=== PATIENT | female | born 1945 | race African-American/Black ===

== ENCOUNTER 2016-12-31 11:32 | Observation (INO) | payer BC ==
[~2016-12-31] VITALS: Ht 167.6 cm; Wt 75.0 kg
[~2016-12-31 11:32] MED LIST: ATEN-102 PO; DIPH50TA PO; EPIP0.3I IM; FAMO1TAB36; NIFE60TA5 PO; PRED20 PO; ZYRT1SYP PO
[2016-12-31 11:35] VITALS: BP 141/77; TEMP 97.9; O2SAT 100
--- NOTE | 2016-12-31 13:14 | PD ---
HPI Chief Complaint: Chest Pain Time Seen by Provider: 13:14 Travel History International Travel<30 days: No Contact w/Intl Traveler<30days: No Traveled to known affect area: No History of Present Illness HPI 71-year-old female with history of lupus and hypertension presents to emergency department for evaluation. Patient states yesterday she had an episode of blurred vision and dizziness. She states this resolved but since then she has been having an intermittent substernal chest pain. It does not radiate anywhere. It is a 3 out of 10. She does not recall any injury. Denies any shortness of breath. No recent illnesses, fever, or chills. She contacted her primary care provider's office, Dr. Jason, who advised she come to the emergency department. Patient denies any nausea or vomiting. No other focal deficits or weakness. No other symptoms to report. PFSH Past Medical History Cardiovascular Problems: Yes Diminished Hearing: No Hypertension: Yes Menopausal: Yes Past Surgical History Cholecystectomy: Yes Social History Alcohol Use: No Tobacco Use: No Substance Use: No Allergies-Medications (Allergen,Severity, Reaction): Coded Allergies: Lisinopril (Verified Allergy, Severe, Anaphylaxis, 12/31/16) Codeine (Verified Allergy, Unknown, RASH, 12/31/16) Reported Meds & Prescriptions Reported Meds & Active Scripts Active Deltasone 20 Mg Tab (Prednisone) 20 Mg Tab 60 Mg PO DAILY 4 Days Epipen (Epinephrine HCl) 0.3 Mg Inj 0.3 Mg IM DIRECTED GIVE IM IN THIGH, MAY REPEAT IF NEEDED Reported Benadryl (Diphenhydramine HCl) 50 Mg Cap 50 Mg PO HS Pepcid (Famotidine) 20 Mg Tab Zyrtec (Cetirizine HCl) 5 Mg/5 Ml Syp 10 Ml PO DAILY Nifedical Xl (Nifedipine) 60 Mg Tab 60 Mg PO DAILY Atenolol 50 Mg Tab 50 Mg PO DAILY Review of Systems Except as stated in HPI: all other systems reviewed are Neg Physical Exam Narrative GENERAL: Well-nourished female patient, in no acute distress SKIN: Warm and dry. HEAD: Atraumatic. Normocephalic. EYES: Pupils equal and round. No scleral icterus. No injection or drainage. EOMI. ENT: No nasal bleeding or discharge. Mucous membranes pink and moist. NECK: Trachea midline. No JVD. CARDIOVASCULAR: Regular rate and rhythm. No murmur appreciated. RESPIRATORY: No accessory muscle use. Clear to auscultation. Breath sounds equal bilaterally. GASTROINTESTINAL: Abdomen soft, non-tender, nondistended. Hepatic and splenic margins not palpable. MUSCULOSKELETAL: No obvious deformities. No clubbing. No cyanosis. No edema. Equal strength. No pronator drift. NEUROLOGICAL: Awake and alert. No obvious cranial nerve deficits. Motor grossly within normal limits. Normal speech. PSYCHIATRIC: Appropriate mood and affect; insight and judgment normal. Data Data Last Documented VS Vital Signs Date Time Temp Pulse Resp B/P Pulse Ox O2 Delivery O2 Flow Rate FiO2 12/31/16 11:35 97.9 70 15 141/77 100 Orders Electrocardiogram (12/31/16 ) Complete Blood Count With Diff (12/31/16 13:13) Comprehensive Metabolic Panel (12/31/16 13:13) Magnesium (Mg) (12/31/16 13:13) Ckmb (Isoenzyme) Profile (12/31/16 13:13) Troponin I (12/31/16 13:13) Act Partial Throm Time (Ptt) (12/31/16 13:13) Prothrombin Time / Inr (Pt) (12/31/16 13:13) Urinalysis - C+S If Indicated (12/31/16 13:13) Chest, Single Ap (12/31/16 13:13) Ct Brain W/O Iv Contrast(Rout) (12/31/16 13:13) Ecg Monitoring (12/31/16 13:13) Iv Access Insert/Monitor (12/31/16 13:13) Oximetry (12/31/16 13:13) Sodium Chloride 0.9% Flush (Ns Flush) (12/31/16 13:15) CKMB (12/31/16 14:10) CKMB% (12/31/16 14:10) Labs Laboratory Tests Test 12/31/16 12/31/16 14:10 15:10 Prothrombin Time 12.6 SEC Prothromb Time International 1.1 RATIO Ratio Activated Partial 23.1 SEC Thromboplast Time Urine Color YELLOW Urine Turbidity CLEAR Urine pH 6.0 Urine Specific [place] 1.021 Urine Protein TRACE mg/dL Urine Glucose (UA) NEG mg/dL Urine Ketones NEG mg/dL Urine Occult Blood NEG Urine Nitrite NEG Urine Bilirubin NEG Urine Urobilinogen LESS THAN 2.0 MG/DL Urine Leukocyte Esterase NEG Urine WBC 1 /hpf Urine Mucus FEW /lpf Microscopic Urinalysis Comment CULT NOT INDICATED Sodium Level 140 MEQ/L Potassium Level 5.0 MEQ/L Chloride Level 104 MEQ/L Carbon Dioxide Level 27.6 MEQ/L Anion Gap 8 MEQ/L Blood Urea Nitrogen 16 MG/DL Creatinine 0.84 MG/DL Estimat Glomerular Filtration 81 ML/MIN Rate Random Glucose 75 MG/DL Calcium Level 8.8 MG/DL Magnesium Level 2.1 MG/DL Total Bilirubin 0.5 MG/DL Aspartate Amino Transf 40 U/L (AST/SGOT) Alanine Aminotransferase 30 U/L (ALT/SGPT) Alkaline Phosphatase 101 U/L Total Creatine Kinase 290 U/L Troponin I LESS THAN 0.02 NG/ML Total Protein 8.2 GM/DL Albumin 3.6 GM/DL White Blood Count 4.8 TH/MM3 Red Blood Count 4.36 MIL/MM3 Hemoglobin 11.8 GM/DL Hematocrit 35.9 % Mean Corpuscular Volume 82.2 FL Mean Corpuscular Hemoglobin 27.0 PG Mean Corpuscular Hemoglobin 32.8 % Concent Red Cell Distribution Width 14.1 % Platelet Count 227 TH/MM3 Mean Platelet Volume 9.6 FL Neutrophils (%) (Auto) 53.6 % Lymphocytes (%) (Auto) 33.6 % Monocytes (%) (Auto) 9.6 % Eosinophils (%) (Auto) 2.3 % Basophils (%) (Auto) 0.9 % Neutrophils # (Auto) 2.6 TH/MM3 Lymphocytes # (Auto) 1.6 TH/MM3 Monocytes # (Auto) 0.5 TH/MM3 Eosinophils # (Auto) 0.1 TH/MM3 Basophils # (Auto) 0.0 TH/MM3 CBC Comment DIFF FINAL Differential Comment MDM Medical Decision Making Medical Screen Exam Complete: Yes Emergency Medical Condition: Yes Medical Record Reviewed: Yes Differential Diagnosis Syncope versus near syncope versus vertigo versus TIA versus CVA versus ICH versus ACS versus dysrhythmia versus electrolyte abnormality Narrative Course 71-year-old female presents to the emergency department for evaluation of a substernal chest pain intermittently occurring following an episode of dizziness and blurred vision that occurred yesterday. Patient appears without distress. Her vital signs are stable. CBC and CMP are without acute concern. Troponin is less than 0.02. Chest x-ray shows basilar hypoaeration with right sided atelectasis. CT imaging of the brain is unremarkable with no evidence of acute infarct, hemorrhage, mass, or edema. I have discussed the patient my attending physician Dr. Blount who agrees the patient should be admitted observation for further evaluation and serial enzymes as well as TIA workup. Plan is discussed with the patient and she is in agreement with this plan of care. Diagnosis Primary Impression: Dizziness Additional Impressions: Blurred vision, bilateral Chest pain Qualified Code: R07.9 - Chest pain, unspecified type Admitting Information Admitting Physician Requests: Observation Condition: Stable ToribioCheyenne SHELTON Dec 31, 2016 13:14
[2016-12-31] MEDS ORDERED: SODIUM CHLORIDE 0.9% FLUSH 5 ML FLUSH IVF PRN (13:15)
--- NOTE | 2016-12-31 13:48 | RADRPT ---
EXAM DATE/TIME: 12/31/2016 13:16 [facility] COMPARISON: No previous studies available for comparison. INDICATIONS : Chest pain MEDICAL HISTORY : None. SURGICAL HISTORY : None. ENCOUNTER: Initial ACUITY: 1 day PAIN SCORE: 2/10 LOCATION: Bilateral chest FINDINGS: A single view of the chest demonstrates basilar hypoaeration. There some minimal airspace disease toya ng the right diaphragm. Mid to upper lung [place] are clear. Heart is at the upper limits of normal in size. Osseous structures are intact. CONCLUSION: Basilar hypoaeration with right-sided atelectasis. Yang Nesbitt MD on December 31, 2016 at 13:46 Board Certified Radiologist. This report was verified electronically.
--- NOTE | 2016-12-31 13:49 | RADRPT ---
EXAM DATE/TIME: 12/31/2016 13:22 [facility] COMPARISON: No previous studies available for comparison. INDICATIONS : Unsteady gait since last night. RADIATION DOSE: 56.35 CTDIvol (mGy) MEDICAL HISTORY : Cardiovascular disease. Hypertension. SURGICAL HISTORY : None. ENCOUNTER: Initial ACUITY: 1 day PAIN SCALE: 0/10 LOCATION: cranial TECHNIQUE: Multiple contiguous axial images were obtained of the head. Using automated exposure control and adj ustment of the mA and/or kV according to patient size, radiation dose was kept as low as reasonably a chievable to obtain optimal diagnostic quality images. FINDINGS: CEREBRUM: The ventricles are normal for age. No evidence of midline shift, mass lesion, hemorrhage or acute in farction. No extra-axial fluid collections are seen. POSTERIOR FOSSA: The cerebellum and brainstem are intact. The 4th ventricle is midline. The cerebellopontine angle i s unremarkable. EXTRACRANIAL: The visualized portion of the orbits is intact. SKULL: The calvaria is intact. No evidence of skull fracture. CONCLUSION: Unremarkable exam. No evidence of acute infarct, hemorrhage, mass or edema. Yang Nesbitt MD on December 31, 2016 at 13:47 Board Certified Radiologist. This report was verified electronically.
[2016-12-31 14:30] VITALS: O2SAT 97
[2016-12-31 14:56] LABS: APTT (PATIENT) 23.1 SEC (24.3-30.1); INTERNATIONAL NORMALIZED RATIO 1.1 RATIO; PROTHROMBIN TIME - PATIENT 12.6 SEC (9.8-11.6)
[2016-12-31 15:09] LABS: BLOOD, URINE NEG (NEG); COMMENT (UR) CULT NOT INDICATED; CULTURE IF INDICATED CULT NOT INDICATED; GLUCOSE,URINE NEG (NEG); KETONE, URINE NEG (NEG); MUCUS URINE FEW /lpf (OCC); NITRITE,URINE NEG (NEG); URINE COLOR YELLOW (YELLW/STRAW)
[2016-12-31 15:10] VITALS: BP 147/71; PULSE 60; RESP 18; O2SAT 97
[2016-12-31 15:26] LABS: AUTOMATED NEUTROPHIL # 2.6 TH/MM3 (1.8-7.7); BASOPHIL % 0.9 % (0.0-2.0); EOSINOPHIL # 0.1 TH/MM3 (0-0.4); EOSINOPHIL % 2.3 % (0.0-4.0); HEMATOCRIT 35.9 % (35.0-46.0); HEMO FLAGS DIFF FINAL; LYMPH % 33.6 % (9.0-44.0); LYMPHOCYTE # 1.6 TH/MM3 (1.0-4.8); MEAN CELL VOLUME 82.2 FL (80.0-100.0); MEAN CORPUSCULAR HGB CONC 32.8 % (32.0-36.0); MONO % 9.6 % (0.0-8.0); NEUT % 53.6 % (16.0-70.0); PLATELET COUNT 227 TH/MM3 (150-450); RED BLOOD COUNT 4.36 MIL/MM3 (4.00-5.30); RED CELL DISTRIBUTION WIDTH 14.1 % (11.6-17.2); WHITE BLOOD COUNT 4.8 TH/MM3 (4.0-11.0)
[2016-12-31 15:41] LABS: ALKALINE PHOSPHATASE 101 U/L (45-117); ALT (GPT) 30 U/L (10-53); ANION GAP 8 MEQ/L (5-15); AST (GOT) 40 U/L (15-37); BICARBONATE 27.6 MEQ/L (21.0-32.0); BLOOD UREA NITROGEN 16 MG/DL (7-18); CHLORIDE 104 MEQ/L (98-107); CREATINE KINASE 290 U/L (26-192); GLOMERULAR FILTRATION RATE 81 ML/MIN (>89); MAGNESIUM 2.1 MG/DL (1.5-2.5); SODIUM (NA) 140 MEQ/L (136-145); TOTAL BILIRUBIN ADULT 0.5 MG/DL (0.2-1.0)
[2016-12-31 15:57] LABS: CKMB 0.6 NG/ML (0.5-3.6)
[2016-12-31] MEDS ORDERED: ACETAMINOPHEN 325 MG TAB PO PRN (16:30)
[2016-12-31] MEDS ORDERED: ONDANSETRON HCL 4 MG/2 ML VIAL IVP PRN (16:30)
[2016-12-31] MEDS ORDERED: ZOLPIDEM TARTRATE 5 MG TAB PO PRN (16:30)
[2016-12-31] MEDS ORDERED: BISACODYL 10 MG SUPP PR PRN (16:30)
[2016-12-31] MEDS ORDERED: SODIUM CHLORIDE 0.9% FLUSH 5 ML FLUSH FLUSH PRN (16:30)
[2016-12-31] MEDS ORDERED: NALOXONE HCL 0.4 MG/ML AMP IV PRN (16:30)
[2016-12-31] MEDS ORDERED: METOCLOPRAMIDE HCL 10 MG/2 ML VIAL IV PUSH PRN (16:30)
--- NOTE | 2016-12-31 16:59 | HHI.HP ---
[facility] Maureen Jason MD Admission Diagnosis dizziness, blurred vision, atypical chest pain. Diagnoses: Chief Complaint: Dizziness Travel History International Travel<30 Days: No Contact w/Intl Traveler <30 Da: No Traveled to Known Affected Are: No History of Present Illness 71-year-old female with a past medical history of HTN and lupus who presented for dizziness. The patient states that yesterday she was talking on the phone at home and suddenly developed some dizziness and blurred vision. She states the symptoms lasted approximately one or 2 minutes. She states she had been standing up for about 5 minutes prior to the episode. She states she tried to get a hold of her , but had a hard time with coordination when trying to work her phone. She denies experiencing any weakness, numbness, tingling, or room spinning sensation. She states her blood pressure at the time was elevated when she checked it at 147/70, although it did improve back to normal 120/69 later in the evening. She states that today she's was feeling a little woozy, so she contacted her PCP who recommended she come to the ED for evaluation. She denies any problems ambulating today. She denies any vision problems now. She states that 2 weeks ago she was around college students getting towards, and contacted a cold from them. She saw her PCP, Dr. Jason last week in the cold head are resolved and no treatment was required. Otherwise she denies any recent illness. She denies any fever, chills, cough, nausea, vomiting, diarrhea, constipation, dysuria. Of note, she states that occasionally she has mild twinges of midsternal chest discomfort. She states it occurs at random, not associated with activity or movement. She states when it comes the severity is 3/10 and it lasts for just a few seconds. She does not have any associated shortness of breath. She does take 81 mg of aspirin every day. Review of Systems Except as stated in HPI: all other systems reviewed are Neg Past Family Social History Past Medical History Hypertension Lupus Past Surgical History Cholecystectomy Reported Medications Reported Aspirin 81 mg daily Plaquenil Nifedical Xl (Nifedipine) 60 Mg Tab 60 Mg PO DAILY Atenolol 50 Mg Tab 50 Mg PO DAILY Allergies: Coded Allergies: Lisinopril (Verified Allergy, Severe, Anaphylaxis, 12/31/16) Codeine (Verified Allergy, Unknown, RASH, 12/31/16) Active Ordered Medications Current Medications Medications (Trade) Dose Ordered Sig/Anirudh Route Start Time Stop Time Status Last Admin (NS Flush) 2 ml UNSCH PRN IVF 12/31/16 13:15 (Tenormin) 50 mg DAILY PO 01/01/17 09:00 UNV (Procardia Xl) 60 mg DAILY PO 01/01/17 09:00 UNV Family History Mother had hypertension Father had heart problems Social History Denies any alcohol, tobacco, or illegal drug use Physical Exam Vital Signs Vital Signs Date Time Temp Pulse Resp B/P Pulse Ox O2 Delivery O2 Flow Rate FiO2 12/31/16 11:35 97.9 70 15 141/77 100 Physical Exam GENERAL: Pleasant. Well-developed well-nourished. In no acute distress. SKIN: Warm and dry. No lesions noted. HEENT: Normocephalic. Pupils equal and round. Mucous membranes pink and moist. CARDIOVASCULAR: Regular rate and rhythm. No murmur appreciated. No chest wall TTP. RESPIRATORY: No accessory muscle use. Clear to auscultation. Breath sounds equal bilaterally. GASTROINTESTINAL: Abdomen soft, non-tender, nondistended. Bowel sounds x4. MUSCULOSKELETAL: No obvious deformities. No clubbing or cyanosis. No edema. NEUROLOGICAL: Awake and alert. No focal neurological deficits. No cranial nerve deficits. Strength 5/5. Moves upper and lower extremities spontaneously. Normal speech. PSYCHIATRIC: Appropriate mood and affect; insight and judgment normal. Laboratory Laboratory Tests Test 12/31/16 12/31/16 14:10 15:10 Prothrombin Time 12.6 Prothromb Time International 1.1 Ratio Activated Partial 23.1 Thromboplast Time Urine Color YELLOW Urine Turbidity CLEAR Urine pH 6.0 Urine Specific [place] 1.021 Urine Protein TRACE Urine Glucose (UA) NEG Urine Ketones NEG Urine Occult Blood NEG Urine Nitrite NEG Urine Bilirubin NEG Urine Urobilinogen LESS THAN 2.0 Urine Leukocyte Esterase NEG Urine WBC 1 Urine Mucus FEW Microscopic Urinalysis Comment CULT NOT INDICATED Sodium Level 140 Potassium Level 5.0 Chloride Level 104 Carbon Dioxide Level 27.6 Anion Gap 8 Blood Urea Nitrogen 16 Creatinine 0.84 Estimat Glomerular Filtration 81 Rate Random Glucose 75 Calcium Level 8.8 Magnesium Level 2.1 Total Bilirubin 0.5 Aspartate Amino Transf 40 (AST/SGOT) Alanine Aminotransferase 30 (ALT/SGPT) Alkaline Phosphatase 101 Total Creatine Kinase 290 Creatine Kinase MB 0.6 Creatine Kinase MB % 0.2 Troponin I LESS THAN 0.02 Total Protein 8.2 Albumin 3.6 White Blood Count 4.8 Red Blood Count 4.36 Hemoglobin 11.8 Hematocrit 35.9 Mean Corpuscular Volume 82.2 Mean Corpuscular Hemoglobin 27.0 Mean Corpuscular Hemoglobin 32.8 Concent Red Cell Distribution Width 14.1 Platelet Count 227 Mean Platelet Volume 9.6 Neutrophils (%) (Auto) 53.6 Lymphocytes (%) (Auto) 33.6 Monocytes (%) (Auto) 9.6 Eosinophils (%) (Auto) 2.3 Basophils (%) (Auto) 0.9 Neutrophils # (Auto) 2.6 Lymphocytes # (Auto) 1.6 Monocytes # (Auto) 0.5 Eosinophils # (Auto) 0.1 Basophils # (Auto) 0.0 CBC Comment DIFF FINAL Differential Comment Result Diagram: 12/31/16 1510 12/31/16 1410 Imaging Last Impressions Head CT 12/31/16 1313 Signed Impressions: Service Date/Time: Saturday, December 31, 2016 13:22 - CONCLUSION: Unremarkable exam. No evidence of acute infarct, hemorrhage, mass or edema. Yang Nesbitt MD Chest X-Ray 12/31/16 1313 Signed Impressions: Service Date/Time: Saturday, December 31, 2016 13:16 - CONCLUSION: Basilar hypoaeration with right-sided atelectasis. Yang Nesbitt MD Assessment and Plan Problem List: (1) Dizziness ICD Code: R42 Status: Resolved (2) Chest pain ICD Code: R07.9 Status: Resolved (3) Blurred vision, bilateral ICD Code: H53.8 Status: Resolved (4) TIA (transient ischemic attack) ICD Code: G45.9 Status: Acute Assessment and Plan 71-year-old female with a past medical history of HTN and lupus who presented for dizziness Transient blurred vision and dizziness: Possible TIA. Head CT reviewed and unremarkable. Ordered brain MRI and carotid ultrasound. PT/OT/ST. Increase home aspirin to 325 mg. Check hemoglobin A1c and lipid panel. Atypical chest pain: Sounds like costochondritis. Initial troponin within normal limits, we'll trend. Chest x-ray some right-sided atelectasis, incentive spirometry. Check echocardiogram and monitor on telemetry. Hypertension: Chronic, stable. Continue home atenolol and nifedipine. Status: Chronic, stable. Continue home Plaquenil. DVT prophylaxis: Lovenox patient seen in the presence of her agree with management following GI specialist recommendations. Code Status Full Code Discussed Condition With Patient with at bedside, ED RN, Dr. Austin Attending Statement Patient stable seen in the presence of her discussed with MARY Hoang agree with management appreciated. Problem Qualifiers (1) Chest pain: Qualified Code: R07.9 - Chest pain, unspecified type (2) TIA (transient ischemic attack): Qualified Code: G45.9 - Transient cerebral ischemia, unspecified type Viktor Rosario Dec 31, 2016 16:59 Stefano Bourne MD Dec 31, 2016 18:57
[2016-12-31] MEDS ORDERED: ENOXAPARIN SODIUM 40 MG/0.4 ML SYRINGE SQ SCH (17:00)
[2016-12-31 17:13] LABS: FREE T4 1.07 NG/DL (0.76-1.46)
[2016-12-31] MEDS ORDERED: LORazepam 2 MG/ML VIAL IV SCH (17:15)
[2016-12-31] MEDS ORDERED: methylPREDNISolone SOD SUCC 125 MG/2 ML VIAL IV PUSH ONE (17:15)
--- NOTE | 2016-12-31 17:18 | PD ---
Physical Exam Narrative GENERAL: Well-nourished, well-developed patient. SKIN: Warm and dry. HEAD: Normocephalic and atraumatic. EYES: No injection or drainage. ENT: No nasal drainage noted. NECK: Supple, trachea midline. CARDIOVASCULAR: Regular rate and rhythm RESPIRATORY: no increased effort. No accessory muscle use. NEUROLOGICAL: Awake and alert. Moves all extremities. Normal speech. Data Data Last Documented VS Vital Signs Date Time Temp Pulse Resp B/P Pulse Ox O2 Delivery O2 Flow Rate FiO2 12/31/16 15:10 60 18 147/71 97 Room Air 12/31/16 11:35 97.9 Orders Electrocardiogram (12/31/16 ) Complete Blood Count With Diff (12/31/16 13:13) Comprehensive Metabolic Panel (12/31/16 13:13) Magnesium (Mg) (12/31/16 13:13) Ckmb (Isoenzyme) Profile (12/31/16 13:13) Troponin I (12/31/16 13:13) Act Partial Throm Time (Ptt) (12/31/16 13:13) Prothrombin Time / Inr (Pt) (12/31/16 13:13) Urinalysis - C+S If Indicated (12/31/16 13:13) Chest, Single Ap (12/31/16 13:13) Ct Brain W/O Iv Contrast(Rout) (12/31/16 13:13) Ecg Monitoring (12/31/16 13:13) Iv Access Insert/Monitor (12/31/16 13:13) Oximetry (12/31/16 13:13) Sodium Chloride 0.9% Flush (Ns Flush) (12/31/16 13:15) CKMB (12/31/16 14:10) CKMB% (12/31/16 14:10) Admit Order (Ed Use Only) (12/31/16 16:19) Atenolol (Tenormin) (01/01/17 09:00) Nifedipine Sr (Procardia Xl) (01/01/17 09:00) Labs Laboratory Tests Test 12/31/16 12/31/16 14:10 15:10 Prothrombin Time 12.6 SEC Prothromb Time International 1.1 RATIO Ratio Activated Partial 23.1 SEC Thromboplast Time Urine Color YELLOW Urine Turbidity CLEAR Urine pH 6.0 Urine Specific [place] 1.021 Urine Protein TRACE mg/dL Urine Glucose (UA) NEG mg/dL Urine Ketones NEG mg/dL Urine Occult Blood NEG Urine Nitrite NEG Urine Bilirubin NEG Urine Urobilinogen LESS THAN 2.0 MG/DL Urine Leukocyte Esterase NEG Urine WBC 1 /hpf Urine Mucus FEW /lpf Microscopic Urinalysis Comment CULT NOT INDICATED Sodium Level 140 MEQ/L Potassium Level 5.0 MEQ/L Chloride Level 104 MEQ/L Carbon Dioxide Level 27.6 MEQ/L Anion Gap 8 MEQ/L Blood Urea Nitrogen 16 MG/DL Creatinine 0.84 MG/DL Estimat Glomerular Filtration 81 ML/MIN Rate Random Glucose 75 MG/DL Calcium Level 8.8 MG/DL Magnesium Level 2.1 MG/DL Total Bilirubin 0.5 MG/DL Aspartate Amino Transf 40 U/L (AST/SGOT) Alanine Aminotransferase 30 U/L (ALT/SGPT) Alkaline Phosphatase 101 U/L Total Creatine Kinase 290 U/L Creatine Kinase MB 0.6 NG/ML Creatine Kinase MB % 0.2 % Troponin I LESS THAN 0.02 NG/ML Total Protein 8.2 GM/DL Albumin 3.6 GM/DL White Blood Count 4.8 TH/MM3 Red Blood Count 4.36 MIL/MM3 Hemoglobin 11.8 GM/DL Hematocrit 35.9 % Mean Corpuscular Volume 82.2 FL Mean Corpuscular Hemoglobin 27.0 PG Mean Corpuscular Hemoglobin 32.8 % Concent Red Cell Distribution Width 14.1 % Platelet Count 227 TH/MM3 Mean Platelet Volume 9.6 FL Neutrophils (%) (Auto) 53.6 % Lymphocytes (%) (Auto) 33.6 % Monocytes (%) (Auto) 9.6 % Eosinophils (%) (Auto) 2.3 % Basophils (%) (Auto) 0.9 % Neutrophils # (Auto) 2.6 TH/MM3 Lymphocytes # (Auto) 1.6 TH/MM3 Monocytes # (Auto) 0.5 TH/MM3 Eosinophils # (Auto) 0.1 TH/MM3 Basophils # (Auto) 0.0 TH/MM3 CBC Comment DIFF FINAL Differential Comment [facility] Supervised Visit with RONALDO: Yes Interpretation(s) CBC & BMP Diagram 12/31/16 14:10 12/31/16 15:10 Last [address] 12/31/16 1313 Signed Impressions: Service Date/Time: Saturday, December 31, 2016 13:22 - CONCLUSION: Unremarkable exam. No evidence of acute infarct, hemorrhage, mass or edema. Yang Nesbitt MD Chest X-Ray 12/31/16 1313 Signed Impressions: Service Date/Time: Saturday, December 31, 2016 13:16 - CONCLUSION: Basilar hypoaeration with right-sided atelectasis. Yang Nesbitt MD Narrative Course I, Dr. cooper, have reviewed the advance practice practitioner's documentation and am in agreement, met with the patient face to face, made the diagnosis, and the medical decision making was done by me. *My assessment and Findings: 71-year-old female presents with chest pain and dizziness. ED workup no acute. Will be placed in observation for further testing Diagnosis Primary Impression: Dizziness Additional Impressions: Blurred vision, bilateral Chest pain Qualified Code: R07.9 - Chest pain, unspecified type Admitting Information Admitting Physician Requests: Observation Condition: Stable Macey Cooper MD Dec 31, 2016 17:17
[2016-12-31] MEDS: ASPIRIN 325 MG TAB PO SCH (17:32)
[2016-12-31] MEDS: RESP: ALBUTEROL 2.5 MG/IPRATROPIUM 0.5 MG NEB (SCH) NEB ×2 (17:40→22:00)
[2016-12-31 17:53] LABS: AMPHETAMINE, URINE NEG (NEG); BARBITURATES, URINE POS (NEG); COCAINE, URINE NEG (NEG)
--- NOTE | 2016-12-31 18:33 | RADRPT ---
EXAM DATE/TIME: 12/31/2016 17:57 [facility] COMPARISON: No previous studies available for comparison. INDICATIONS : TIA. MEDICAL HISTORY : Hypertension. SURGICAL HISTORY : Cholecystectomy. ENCOUNTER: Initial ACUITY: 2 day PAIN SCORE: 2/10 LOCATION: Bilateral cranial TECHNIQUE: Multiplanar, multisequence MRI of the brain was performed without contrast. FINDINGS: CEREBRUM: The ventricles are normal for age. No evidence of midline shift, mass lesion, hemorrhage or acute in farction. No extraaxial fluid collections are seen. The pituitary gland and suprasellar cistern are normal in configuration. WHITE MATTER: No significant signal abnormalities are seen in the white matter. POSTERIOR FOSSA: The cerebellum and brainstem are intact. The 4th ventricle is midline. The cerebellopontine angle is unremarkable. The cerebellar tonsils are normal in position. DIFFUSION IMAGING: No focal areas of restricted diffusion are seen. No evidence of acute infarction. EXTRACRANIAL: The visualized portions of the orbits and paranasal sinuses are unremarkable. CONCLUSION: Negative noncontrast MRI of the brain. No infarct demonstrated. Kamlesh Huitron MD on December 31, 2016 at 18:31 Board Certified Radiologist. This report was verified electronically.
[2016-12-31] MEDS: SODIUM CHLOR 0.9% 1000 ML INJ 1,000 ML IV SCH ×2 (18:46→22:03)
[2016-12-31 19:24] VITALS: BP 171/80; PULSE 72; RESP 18; O2SAT 97
[2016-12-31 19:42] LABS: CREATINE KINASE 173 U/L (26-192)
[2016-12-31] MEDS: RESP: BUDESONIDE 0.5 MG/2 ML NEB NEB SCH (20:00)
--- NOTE | 2016-12-31 20:11 | RADRPT ---
EXAM DATE/TIME: 12/31/2016 18:21 [facility] COMPARISON: No previous studies available for comparison. INDICATIONS : Transient ischemic attack. MEDICAL HISTORY : Hypertension. Lupus. SURGICAL HISTORY : Cholecystectomy. ENCOUNTER: Initial ACUITY: 1 day PAIN SCORE: 0/10 LOCATION: Bilateral neck PEAK SYSTOLIC VELOCITIES (cm/sec): ICA/CCA RATIO: Right: 1.8 Left: 1.4 ICA: Right: 161 Left: 128 CCA: Right: 91 Left: 90 ECA: Right: 158 Left: 71 VERTEBRAL: Right: 48 antegrade Left: 45 antegrade Elevated flow velocities and ICA/CCA ratios have been found to correlate with increased degrees of vessel stenosis, calculated as percentage of diameter relative to a normal segment of distal ICA/CCA FINDINGS: RIGHT CAROTID: There is moderate plaque of the bulb and proximal internal carotid artery; 50% or less narrowing. LEFT CAROTID: There is mild plaque of the bulb and proximal internal carotid artery 20% or less narrowing. VERTEBRAL ARTERIES: Antegrade flow is seen in both vertebral arteries. MISCELLANEOUS: None. CONCLUSION: Bilateral bifurcation atherosclerotic plaque, moderate on the right and mild on the left. No hemodyna mically significant narrowing. Kamlesh Huitron MD on December 31, 2016 at 20:08 Board Certified Radiologist. This report was verified electronically.
[2016-12-31 22:02] VITALS: BP 133/67; PULSE 80; RESP 20; TEMP 95.9; O2SAT 97
[2016-12-31] MEDS: guaiFENesin E.R. 600 MG TAB PO SCH (22:03)
[2016-12-31] MEDS: SODIUM CHLORIDE 0.9% FLUSH 5 ML FLUSH FLUSH SCH (22:04)
[2016-12-31 22:18] VITALS: PULSE 75
[2017-01-01] VITALS: BP 133/68; PULSE 76; RESP 20; TEMP 97.7; O2SAT 97
[2017-01-01 02:45] LABS: AUTOMATED NEUTROPHIL # 4.6 TH/MM3 (1.8-7.7); BASOPHIL % 0.3 % (0.0-2.0); HEMATOCRIT 38.5 % (35.0-46.0); HEMO FLAGS DIFF FINAL; LYMPH % 16.4 % (9.0-44.0); LYMPHOCYTE # 0.9 TH/MM3 (1.0-4.8); MEAN CELL VOLUME 82.9 FL (80.0-100.0); MEAN CORPUSCULAR HEMOGLOBIN 26.9 PG (27.0-34.0); MEAN CORPUSCULAR HGB CONC 32.4 % (32.0-36.0); MONO % 1.7 % (0.0-8.0); NEUT % 81.6 % (16.0-70.0); PLATELET COUNT 215 TH/MM3 (150-450); RED BLOOD COUNT 4.64 MIL/MM3 (4.00-5.30); RED CELL DISTRIBUTION WIDTH 14.1 % (11.6-17.2); WHITE BLOOD COUNT 5.6 TH/MM3 (4.0-11.0)
[2017-01-01 03:00] LABS: PROTHROMBIN TIME - PATIENT 10.9 SEC (9.8-11.6)
[2017-01-01 03:06] LABS: ANION GAP 9 MEQ/L (5-15); AST (GOT) 19 U/L (15-37); BICARBONATE 26.6 MEQ/L (21.0-32.0); BLOOD UREA NITROGEN 16 MG/DL (7-18); CHLORIDE 101 MEQ/L (98-107); GLOMERULAR FILTRATION RATE 86 ML/MIN (>89); POTASSIUM 3.9 MEQ/L (3.5-5.1); SODIUM (NA) 137 MEQ/L (136-145)
[2017-01-01 03:08] LABS: ALKALINE PHOSPHATASE 100 U/L (45-117); ALT (GPT) 25 U/L (10-53); CREATINE KINASE 170 U/L (26-192); HDL CHOLESTEROL 49.8 MG/DL (40.0-60.0); INDIRECT BILIRUBIN 0.3 MG/DL (0.0-0.8); LDL CHOLESTEROL 118 MG/DL (0-99); TOTAL BILIRUBIN ADULT 0.4 MG/DL (0.2-1.0)
[2017-01-01] MEDS: RESP: ALBUTEROL 2.5 MG/IPRATROPIUM 0.5 MG NEB (SCH) NEB ×2 (03:41→08:56)
[2017-01-01 04:18] VITALS: BP 121/60; PULSE 75; RESP 21; TEMP 97.7; O2SAT 96
[2017-01-01 08:00] VITALS: BP 116/56; PULSE 70; PULSE 75; RESP 18; TEMP 96.2; O2SAT 99
[2017-01-01] MEDS: RESP: BUDESONIDE 0.5 MG/2 ML NEB NEB SCH (08:00)
--- NOTE | 2017-01-01 08:30 | HHI.PR ---
Subjective Remarks This is a pleasant 71 y/o Female with Hypertension, Lupus, who came to Emergency room with dizziness blurred vision, Mild uncontrolled hypertension, her PCP sent her to ER, occasionally she has mild twinges of midsternal chest discomfort. She states it occurs at random, not associated with activity or movement. admitted to rule out ACS and TIA. Patient stable in her bedroom, asymptomatic, all tests within normal limits. okay to discharge, discussed with patient and her in the room Objective Vital Signs Date Time Temp Pulse Resp B/P Pulse Ox O2 Delivery O2 Flow Rate FiO2 01/01/17 04:18 97.7 75 21 121/60 96 01/01/17 00:00 97.7 76 20 133/68 97 12/31/16 22:18 75 12/31/16 22:02 95.9 80 20 133/67 97 12/31/16 19:24 72 18 171/80 97 Room Air 12/31/16 15:10 60 18 147/71 97 Room Air 12/31/16 14:30 97 Room Air 12/31/16 11:35 97.9 70 15 141/77 100 Result Diagram: 01/01/1721401/01/175 Imaging Last Impressions Head CT 12/31/16 1313 Signed Impressions: Service Date/Time: Saturday, December 31, 2016 13:22 - CONCLUSION: Unremarkable exam. No evidence of acute infarct, hemorrhage, mass or edema. Yang Nesbitt MD Chest X-Ray 12/31/16 1313 Signed Impressions: Service Date/Time: Saturday, December 31, 2016 13:16 - CONCLUSION: Basilar hypoaeration with right-sided atelectasis. Yang Nesbitt MD Carotid Artery Ultrasound 12/31/16 0000 Signed Impressions: Service Date/Time: Saturday, December 31, 2016 18:21 - CONCLUSION: Bilateral bifurcation atherosclerotic plaque, moderate on the right and mild on the left. No hemodynamically significant narrowing. Kamlesh Huitron MD Brain MRI 12/31/16 0000 Signed Impressions: Service Date/Time: Saturday, December 31, 2016 17:57 - CONCLUSION: Negative noncontrast MRI of the brain. No infarct demonstrated. Kamlesh Huitron MD Procedures No procedures performed to the patient. Other Results Laboratory Tests Test 12/31/16 01/01/17 14:10 02:15 Activated Partial 23.1 SEC Thromboplast Time Urine Color YELLOW Urine Turbidity CLEAR Urine pH 6.0 Urine Specific [place] 1.021 Urine Protein TRACE mg/dL Urine Glucose (UA) NEG mg/dL Urine Ketones NEG mg/dL Urine Occult Blood NEG Urine Nitrite NEG Urine Bilirubin NEG Urine Urobilinogen LESS THAN 2.0 MG/DL Urine Leukocyte Esterase NEG Urine WBC 1 /hpf Urine Mucus FEW /lpf Microscopic Urinalysis Comment CULT NOT INDICATED Magnesium Level 2.1 MG/DL Creatine Kinase MB 0.6 NG/ML Creatine Kinase MB % 0.2 % Free Thyroxine 1.07 NG/DL Thyroid Stimulating Hormone 1.430 uIU/ML 3rd Gen Urine Opiates Screen NEG Urine Barbiturates Screen POS Urine Amphetamines Screen NEG Urine Benzodiazepines Screen NEG Urine Cocaine Screen NEG Urine Cannabinoids Screen NEG Ethyl Alcohol Level LESS THAN 3 MG/DL White Blood Count 5.6 TH/MM3 Red Blood Count 4.64 MIL/MM3 Hemoglobin 12.5 GM/DL Hematocrit 38.5 % Mean Corpuscular Volume 82.9 FL Mean Corpuscular Hemoglobin 26.9 PG Mean Corpuscular Hemoglobin 32.4 % Concent Red Cell Distribution Width 14.1 % Platelet Count 215 TH/MM3 Mean Platelet Volume 9.9 FL Neutrophils (%) (Auto) 81.6 % Lymphocytes (%) (Auto) 16.4 % Monocytes (%) (Auto) 1.7 % Eosinophils (%) (Auto) 0.0 % Basophils (%) (Auto) 0.3 % Neutrophils # (Auto) 4.6 TH/MM3 Lymphocytes # (Auto) 0.9 TH/MM3 Monocytes # (Auto) 0.1 TH/MM3 Eosinophils # (Auto) 0.0 TH/MM3 Basophils # (Auto) 0.0 TH/MM3 CBC Comment DIFF FINAL Differential Comment Prothrombin Time 10.9 SEC Prothromb Time International 1.0 RATIO Ratio Sodium Level 137 MEQ/L Potassium Level 3.9 MEQ/L Chloride Level 101 MEQ/L Carbon Dioxide Level 26.6 MEQ/L Anion Gap 9 MEQ/L Blood Urea Nitrogen 16 MG/DL Creatinine 0.80 MG/DL Estimat Glomerular Filtration 86 ML/MIN Rate Random Glucose 141 MG/DL Calcium Level 8.8 MG/DL Total Bilirubin 0.4 MG/DL Direct Bilirubin 0.1 MG/DL Indirect Bilirubin 0.3 MG/DL Aspartate Amino Transf 19 U/L (AST/SGOT) Alanine Aminotransferase 25 U/L (ALT/SGPT) Alkaline Phosphatase 100 U/L Total Creatine Kinase 170 U/L Troponin I LESS THAN 0.02 NG/ML Total Protein 7.9 GM/DL Albumin 3.4 GM/DL Triglycerides Level 44 MG/DL Cholesterol Level 177 MG/DL LDL Cholesterol 118 MG/DL HDL Cholesterol 49.8 MG/DL Cholesterol/HDL Ratio 3.55 RATIO Objective Remarks GENERAL: Pleasant. Well-developed well-nourished. In no acute distress. SKIN: Warm and dry. No lesions noted. HEENT: Normocephalic. Pupils equal and round. Mucous membranes pink and moist. CARDIOVASCULAR: Regular rate and rhythm. No murmur appreciated. No chest wall TTP. RESPIRATORY: No accessory muscle use. Clear to auscultation. Breath sounds equal bilaterally. GASTROINTESTINAL: Abdomen soft, non-tender, nondistended. Bowel sounds x4. MUSCULOSKELETAL: No obvious deformities. No clubbing or cyanosis. No edema. NEUROLOGICAL: Awake and alert. No focal neurological deficits. No cranial nerve deficits. Strength 5/5. Moves upper and lower extremities spontaneously. Normal speech. PSYCHIATRIC: Appropriate mood and affect; insight and judgment normal. Medications and IVs Current Medications Medications (Trade) Dose Ordered Sig/Anirudh Route Start Time Stop Time Status Last Admin (Tenormin) 50 mg DAILY PO 01/01/17 09:00 Nifedipine 60 mg 60 mg DAILY PO 01/01/17 09:00 (NS 1000 ml Inj) 1,000 ml @ 70 mls/hr [id number] IV 12/31/16 17:00 12/31/16 22:03 (NS Flush) 2 ml UNSCH PRN FLUSH 12/31/16 16:30 (NS Flush) 2 ml BID FLUSH 12/31/16 21:00 12/31/16 22:04 (Tylenol) 650 mg Q4H PRN PO 12/31/16 16:30 (Zofran Inj) 4 mg Q6H PRN IVP 12/31/16 16:30 (Reglan Inj) 5 mg Q6H PRN IV PUSH 12/31/16 16:30 (Dulcolax Supp) 10 mg DAILY PRN ND 12/31/16 16:30 (Ambien) 5 mg HS PRN PO 12/31/16 16:30 (Lovenox Inj) 40 mg Q24H SQ 12/31/16 17:00 12/31/16 17:32 (Narcan Inj) 0.4 mg UNSCH PRN IV 12/31/16 16:30 (Aspirin) 325 mg DAILY PO 12/31/16 17:00 12/31/16 17:32 (Mucinex Er) 600 mg BID PO 12/31/16 21:00 12/31/16 22:03 A/P Assessment and Plan 71-year-old female with a past medical history of HTN and lupus who presented for dizziness 1. Transient blurred vision and dizziness: Ruled out CVA, doubt TIA but will continue Aspirin 325 mg daily. MRI within normal limits CT scan unremarkable. 2. Atypical chest pain: Sounds like costochondritis. Initial troponin within normal limits. Chest x-ray some right-sided atelectasis, incentive spirometry. Check echocardiogram and monitor on telemetry. will need to follow with PCP as outpatient. 3. Hypertension: Controlled. 4. Lupus continue Home medicines. DVT prophylaxis: Lovenox Discussed in the room in the presence of her okay to discharge did not found pathology follow with PCP Code Status Full Code Discharge Planning Discharge Home today No Needs as per Physical therapy or Occupational Therapy. Stefano Bourne MD Jan 01, 2017 08:30
[2017-01-01 09:00] VITALS: O2SAT 99
[2017-01-01] MEDS ORDERED: ATENOLOL 50 MG TAB PO SCH (09:00)
[2017-01-01] MEDS ORDERED: NIFEdipine 60 MG SUSTAINED RELEASE TAB PO SCH (09:00)
[2017-01-01] MEDS: guaiFENesin E.R. 600 MG TAB PO SCH (09:29)
[2017-01-01] MEDS: ASPIRIN 325 MG TAB PO SCH (09:29)
[2017-01-01] MEDS: SODIUM CHLORIDE 0.9% FLUSH 5 ML FLUSH FLUSH SCH (09:29)
[2017-01-01] MEDS ORDERED: ATEN50TA PO (09:32)
[2017-01-01] MEDS ORDERED: HYDR200T3 PO (09:34)
[2017-01-01 12:00] VITALS: BP 118/60; PULSE 87; RESP 18; TEMP 96.3; O2SAT 100
[2017-01-01] MEDS ORDERED: ASPI325T PO (13:33)
--- NOTE | 2017-01-01 13:35 | HHI.DS ---
Discharge Summary Admission Date Dec 31, 2016 at 16:21 Discharge Date: Jan 01, 2017 Admitting Diagnosis dizziness, blurred vision, atypical chest pain. (1) Dizziness ICD Code: R42 Diagnosis: Principal (2) Chest pain ICD Code: R07.9 Diagnosis: Principal (3) Blurred vision, bilateral ICD Code: H53.8 Diagnosis: Principal (4) TIA (transient ischemic attack) ICD Code: G45.9 Diagnosis: Secondary Procedures No procedures performed Brief History - From Admission 71-year-old female with a past medical history of HTN and lupus who presented for dizziness. The patient states that yesterday she was talking on the phone at home and suddenly developed some dizziness and blurred vision. She states the symptoms lasted approximately one or 2 minutes. She states she had been standing up for about 5 minutes prior to the episode. She states she tried to get a hold of her , but had a hard time with coordination when trying to work her phone. She denies experiencing any weakness, numbness, tingling, or room spinning sensation. She states her blood pressure at the time was elevated when she checked it at 147/70, although it did improve back to normal 120/69 later in the evening. She states that today she's was feeling a little woozy, so she contacted her PCP who recommended she come to the ED for evaluation. She denies any problems ambulating today. She denies any vision problems now. She states that 2 weeks ago she was around college students getting towards, and contacted a cold from them. She saw her PCP, Dr. Jason last week in the cold head are resolved and no treatment was required. Otherwise she denies any recent illness. She denies any fever, chills, cough, nausea, vomiting, diarrhea, constipation, dysuria. Of note, she states that occasionally she has mild twinges of midsternal chest discomfort. She states it occurs at random, not associated with activity or movement. She states when it comes the severity is 3/10 and it lasts for just a few seconds. She does not have any associated shortness of breath. She does take 81 mg of aspirin every day. CBC/BMP: 01/01/17 0215 01/01/17 0215 Significant Findings Laboratory Tests Test 12/31/16 12/31/16 12/31/16 01/01/17 14:10 15:10 18:35 02:15 Prothrombin Time 12.6 SEC (9.8-11.6) Activated Partial 23.1 SEC Thromboplast Time (24.3-30.1) Urine Mucus FEW /lpf (OCC) Estimat Glomerular Filtration 81 ML/MIN (>89) 86 ML/MIN (>89) Rate Aspartate Amino Transf 40 U/L (15-37) (AST/SGOT) Total Creatine Kinase 290 U/L (26-192) Troponin I LESS THAN 0.02 LESS THAN 0.02 LESS THAN 0.02 NG/ML NG/ML NG/ML (0.02-0.05) (0.02-0.05) (0.02-0.05) Urine Barbiturates Screen POS (NEG) Monocytes (%) (Auto) 9.6 % (0.0-8.0) Mean Corpuscular Hemoglobin 26.9 PG (27.0-34.0) Neutrophils (%) (Auto) 81.6 % (16.0-70.0) Lymphocytes # (Auto) 0.9 TH/MM3 (1.0-4.8) Random Glucose 141 MG/DL (74-106) LDL Cholesterol 118 MG/DL (0-99) Imaging Last Impressions Head CT 12/31/163 Signed Impressions: Service Date/Time: Saturday, December 31, 2016 13:22 - CONCLUSION: Unremarkable exam. No evidence of acute infarct, hemorrhage, mass or edema. Yang Nesbitt MD Chest X-Ray 12/31/16 1313 Signed Impressions: Service Date/Time: Saturday, December 31, 2016 13:16 - CONCLUSION: Basilar hypoaeration with right-sided atelectasis. Yang Nesbitt MD Carotid Artery Ultrasound 12/31/16 0000 Signed Impressions: Service Date/Time: Saturday, December 31, 2016 18:21 - CONCLUSION: Bilateral bifurcation atherosclerotic plaque, moderate on the right and mild on the left. No hemodynamically significant narrowing. Kamlesh Huitron MD Brain MRI 12/31/16 0000 Signed Impressions: Service Date/Time: Saturday, December 31, 2016 17:57 - CONCLUSION: Negative noncontrast MRI of the brain. No infarct demonstrated. Kamlesh Huitron MD PE at Discharge GENERAL: Pleasant. Well-developed well-nourished. In no acute distress. SKIN: Warm and dry. No lesions noted. HEENT: Normocephalic. Pupils equal and round. Mucous membranes pink and moist. CARDIOVASCULAR: Regular rate and rhythm. No murmur appreciated. No chest wall TTP. RESPIRATORY: No accessory muscle use. Clear to auscultation. Breath sounds equal bilaterally. GASTROINTESTINAL: Abdomen soft, non-tender, nondistended. Bowel sounds x4. MUSCULOSKELETAL: No obvious deformities. No clubbing or cyanosis. No edema. NEUROLOGICAL: Awake and alert. No focal neurological deficits. No cranial nerve deficits. Strength 5/5. Moves upper and lower extremities spontaneously. Normal speech. PSYCHIATRIC: Appropriate mood and affect; insight and judgment normal. Hospital Course This is a pleasant 71 y/o Female with Hypertension, Lupus, who came to Emergency room with dizziness blurred vision, Mild uncontrolled hypertension, her PCP sent her to ER, occasionally she has mild twinges of midsternal chest discomfort. She states it occurs at random, not associated with activity or movement. admitted to rule out ACS and TIA. Patient stable in her bedroom, asymptomatic, all tests within normal limits. okay to discharge, discussed with patient and her in the room Assessment and Plan 71-year-old female with a past medical history of HTN and lupus who presented for dizziness 1. Transient blurred vision and dizziness: Ruled out CVA, doubt TIA but will continue Aspirin 325 mg daily. MRI within normal limits CT scan unremarkable. 2. Atypical chest pain: Sounds like costochondritis. Initial troponin within normal limits. Chest x-ray some right-sided atelectasis, incentive spirometry. Check echocardiogram and monitor on telemetry. will need to follow with PCP as outpatient. 3. Hypertension: Controlled. 4. Lupus continue Home medicines. DVT prophylaxis: Lovenox Discussed in the room in the presence of her okay to discharge did not found pathology follow with PCP Code Status Full Code Discharge Planning Discharge Home today No Needs as per Physical therapy or Occupational Therapy. Pt Condition on Discharge: Good Discharge Disposition: Discharge Home Discharge Time: <= 30 minutes Discharge Instructions DIET: Follow Instructions for: Heart Healthy Diet Activities you can perform: Regular-No Restrictions Stefano Bourne MD Jan 01, 2017 13:35
--- NOTE | 2017-01-01 17:31 | EKG ---
Date Performed: 01/01/2017 Time Performed: 01:55:14 PTAGE: 71 years EKG: Sinus rhythm Compared to prior tracing no significant change NORMAL ECG PREVIOUS TRACING : 12/31/2016 19.02 DOCTOR: Toni Basilio Interpretating Date/Time 01/01/2017 17:30:19
--- NOTE | 2017-01-01 17:31 | EKG ---
Date Performed: 12/31/2016 Time Performed: 19:02:27 PTAGE: 71 years EKG: Sinus rhythm Compared to prior tracing no significant change NORMAL ECG PREVIOUS TRACING : 12/31/2016 11.44 DOCTOR: Toni Basilio Interpretating Date/Time 01/01/2017 17:29:59
--- NOTE | 2017-01-01 17:31 | EKG ---
Date Performed: 12/31/2016 Time Performed: 11:44:32 PTAGE: 71 years EKG: Sinus rhythm NORMAL ECG Compared to prior tracing no significant change INTERPRETATION BASED ON A DEFAULT AGE OF 40 YEARS PREVIOUS TRACING 12/03/1998 @ 11.44.11 DOCTOR: Toni Basilio Interpretating Date/Time 01/01/2017 17:29:27
[2017-01-02 10:36] LABS: HEMOGLOBIN A1a 0.9 %; HEMOGLOBIN A1b 1.1 %; HEMOGLOBIN Ao 85.7 %; HEMOGLOBIN F 0.9 %; HEMOGLOBIN LA1C 1.3 %; HEMOGLOBIN P3 3.4 %
== END 2017-01-01 15:01 | disposition home or self-care (01) ==
LOC: NEPC 11:32 → NEDA 16:21 → NEPFCDU 19:29
PROVIDERS: ADMIT Internal Medicine; ATTEND Internal Medicine
DX: G45.9 Transient cerebral ischemic attack, unspecified (principal); I10 Essential (primary) hypertension; Z88.5 Allergy status to narcotic agent; Z91.048 Other nonmedicinal substance allergy status; Z85.118 Personal history of other malignant neoplasm of bronchus and lung; Z79.82 Long term (current) use of aspirin; J98.11 Atelectasis; M32.9 Systemic lupus erythematosus, unspecified; M94.0 Chondrocostal junction syndrome [Tietze]
CPT/HCPCS: 70450; 70551; 71010; 80048; 80053; 80061; 80076; 80307; 81001; 82550; 82552; 83036; 83735; 84439; 84443; 84484; 85025; 85610; 85730; 92610; 93005; 93880; 94150; 94640; 94664; 97163; 97166; 99285; G0378; G8987; G8988; G8989; G8996; G8997; G8998; J1650; J2060; J2930; J7030

== ENCOUNTER 2018-07-19 11:52 | Observation (INO) ==
[2018-07-19] MEDS ORDERED: Sod Chloride 0.9% Inj 1,000 ML IV.CONT SCH ×2 (12:15→14:00)
[2018-07-19 12:46] LABS: Baso % (Auto) 0.7 % (0.0-2.0); Eos # (Auto) 0.2 th/mm3 (0.0-0.4); Eos % (Auto) 3.5 % (0.0-4.0); Hematocrit 38.9 % (35.0-46.0); Hemoglobin 12.6 gm/dL (11.6-15.3); Lymph # (Auto) 1.8 th/mm3 (1.0-4.8); Lymph % (Auto) 36.9 % (9.0-44.0); Mean Corpuscular HGB Conc 32.5 % (32.0-36.0); Mean Corpuscular Hemoglobin 27.5 pg (27.0-34.0); Mean Corpuscular Volume 84.6 fL (80.0-100.0); Mean Platelet Volume 9.9 fL (7.0-11.0); Mono # (Auto) 0.4 th/mm3 (0.0-0.9); Mono % (Auto) 7.5 % (0.0-8.0); Neut # (Auto) 2.6 th/mm3 (1.8-7.7); Neut % (Auto) 51.4 % (16.0-70.0); Platelet Count 195 th/mm3 (150-450); Red Blood Count 4.59 mil/mm3 (4.00-5.30); Red Cell Distribution Width 14.9 % (11.6-17.2)
[2018-07-19 12:54] LABS: Activated Partial Thrombo Time 22.8 sec (24.3-30.1); Prothrombin Time 10.1 sec (9.8-11.6)
[2018-07-19 13:16] LABS: Anion Gap 7 meq/L (5-15); Blood Urea Nitrogen 14 mg/dL (7-18); Calcium 8.6 mg/dL (8.5-10.1); Carbon Dioxide 29.2 meq/L (21.0-32.0); Chloride 105 meq/L (98-107); Glomerular Filtration Rate 83 mL/min (>89); Glucose,Random 94 mg/dL (74-106); Potassium 4.1 meq/L (3.5-5.1); Sodium 141 meq/L (136-145)
[2018-07-19 13:20] LABS: Creatine Kinase 205 U/L (26-192)
--- NOTE | 2018-07-19 13:24 | ED ---
HPI General Chief Complaint: Neuro Symptoms/Deficit Stated Complaint: Phys Sent/Poss TIA Time Seen by Provider: 07/19/18 12:09 Source: patient Mode of arrival: ambulatory Limitations: no limitations History of Present Illness Onset (ago): hour(s) (1) Location: other (dizziness, blurred vision, foggy-feeling) History of same: Yes Severity: mild Relieving factors: none Exacerbating factors: none Context: sudden onset and other (while shopping) Associated symptoms: confusion Treatments Prior to Arrival: none Related Data Home Medications Medication Instructions Recorded Confirmed atenolol 50 mg PO BID 07/19/18 07/19/18 hydroxychloroquine 200 mg PO BID 07/19/18 07/19/18 nifedipine 60 mg PO DAILY 07/19/18 07/19/18 Allergies Allergy/AdvReac Type Severity Reaction Status Date / Time lisinopril Allergy Severe Anaphylaxis Verified 07/19/18 12:50 codeine Allergy Unknown RASH Verified 07/19/18 12:50 Review of Systems ROS: all other systems reviewed are negative [facility] Medical History Medical History Gallstones (Acute) Hypertension (Acute) Lupus (Acute) Surgical History Surgical History No history of previous surgery (Acute) Social History Social History Smoking Status: Never smoker How Often Do You Have a Drink Containing Alcohol: Never Recent Travel in [facility] within the Last 8 Weeks: No Recent Out of Country Travel within the Last 8 Weeks: No Immunization History Tetanus Immunization: Unsure Exam Const General: cooperative, healthy appearing and comfortable Orientation: alert, awake and oriented x3 HENMT Head: normal to inspection, normocephalic and atraumatic Eyes Alignment and Position: alignment normal Conjunctivae: conjunctivae normal Sclera: sclerae normal EOM: EOM intact bilaterally Neck Neck: normal visual inspection, no lymphadenopathy and no meningeal signs Chest Chest: normal inspection of the chest Resp Effort & Inspection: normal respiratory effort and able to speak in complete sentences Auscultation: clear to auscultation bilaterally Cardio Rate: regular rate Rhythm: regular rhythm Back/Spine/Pelvis Cervical Spine: cervical ROM normal Thoracic/Lumbar Spine: thoraco-lumbar ROM normal Skin General: no rashes or lesions noted, turgor normal and dry skin Neuro General: alert, awake, oriented x3, moves all extremities and CN's II-XI intact bilaterally Cranial Nerves: PERRL, no nystagmus, facial strength normal and tongue midline Cognition: normal cognition Speech: speech normal Gait: normal gait Motor: muscle tone normal throughout and strength 5/5 throughout Coordination: [id number] test normal Extrem General: normal to inspection and full ROM Psych Appearance: grossly normal Mental Status: mental status grossly normal Speech and Movement: speech and movement normal Mood: congruent mood Affect: normal affect Attitude: cooperative Thought Process: normal Thought Content: normal Judgment: judgment good Course Consultations Consultation #1: Dr. Carpio will admit to OBS for further evaluation Time: 13:51 Initial Documented Vital Signs Temperature 98.2 F 07/19/18 12:01 Pulse Rate 71 07/19/18 12:01 Respiratory Rate 16 07/19/18 12:01 Blood Pressure 165/76 H 07/19/18 12:01 Pulse Oximetry 99 07/19/18 12:01 Last Documented Vital Signs Temperature 98.2 F 07/19/18 12:01 Pulse Rate 81 07/19/18 12:48 Respiratory Rate 16 07/19/18 12:01 Blood Pressure 165/76 H 07/19/18 12:01 Pulse Oximetry 98 07/19/18 12:36 Medical Decision Making [facility] Narrative Medical decision making narrative: This patient presents with a 10-minute history of blurred vision, dizziness and feeling foggy. She is now completely resolved and has a normal neurological exam. Medical Screen Exam Complete: Yes Emergency Medical Condition: Yes Differential Diagnosis Differential Diagnosis: Differential diagnosis includes but is not limited to TIA, CVA, brain tumor, migraine, anxiety Medical Records Medical records reviewed: Yes I reviewed the patient's medical records. She had a negative CT head and MRI brain in December 2016. Carotid ultrasound showed bilateral nonoccluding plaque. Lab Data Lab results reviewed: Yes I reviewed the patient's lab results. Result diagrams: 07/19/18 12:28 07/19/18 12:28 Lab Results 07/19/18 07/19/18 07/19/18 Range/Units 12:28 12:28 12:28 WBC 5.0 (4.0-11.0) th/mm3 RBC 4.59 (4.00-5.30) mil/mm3 Hgb 12.6 (11.6-15.3) gm/dL Hct 38.9 (35.0-46.0) % MCV 84.6 (80.0-100.0) fL MCH 27.5 (27.0-34.0) pg MCHC 32.5 (32.0-36.0) % RDW 14.9 (11.6-17.2) % Plt Count 195 (150-450) th/mm3 MPV 9.9 (7.0-11.0) fL Neut % (Auto) 51.4 (16.0-70.0) % Lymph % (Auto) 36.9 (9.0-44.0) % [place] % (Auto) 7.5 (0.0-8.0) % Eos % (Auto) 3.5 (0.0-4.0) % Baso % (Auto) 0.7 (0.0-2.0) % Neut # (Auto) 2.6 (1.8-7.7) th/mm3 Lymph # (Auto) 1.8 (1.0-4.8) th/mm3 [place] # (Auto) 0.4 (0.0-0.9) th/mm3 Eos # (Auto) 0.2 (0.0-0.4) th/mm3 Baso # (Auto) 0.0 (0.0-0.2) th/mm3 WBC Differential . Differential Comment Auto diff final PT 10.1 (9.8-11.6) sec INR 1.0 Ratio APTT 22.8 L (24.3-30.1) sec Sodium 141 (136-145) meq/L Potassium 4.1 (3.5-5.1) meq/L Chloride 105 (98-107) meq/L Carbon Dioxide 29.2 (21.0-32.0) meq/L Anion Gap 7 (5-15) meq/L BUN 14 (7-18) mg/dL Creatinine 0.82 (0.50-1.00) mg/dL Estimated GFR 83 L (>89) mL/min Random Glucose 94 (74-106) mg/dL Calcium 8.6 (8.5-10.1) mg/dL Total Creatine Kinase 205 H (26-192) U/L CK-MB (CK-2) 1.4 (0.5-3.6) ng/mL CK-MB (CK-2) % 0.7 (0.0-4.0) % Troponin I Less than 0.02 L (0.02-0.05) ng/mL Imaging Data Radiologist's impression: Head CT 07/19/18 12:15 CONCLUSION: 1. No acute intracranial abnormality. . Discharge Plan Discharge Disposition Patient Disposition: 30 Still Patient Discharge Details Diagnosis: Transient cerebral ischemia Physicians Team ED Provider: Allyssa Santos Primary Care Provider: Maureen Jason Rxs /Orders / Referrals /Forms Prescriptions: No Action hydroxychloroquine 200 mg Tablet 200 mg PO BID RF: 0 atenolol 50 mg Tablet 50 mg PO BID RF: 0 nifedipine 60 mg Tablet Extended Release 60 mg PO DAILY RF: 0 Status ED Status: Pending Admission
--- NOTE | 2018-07-19 13:24 | CT ---
EXAM DATE: 07/19/2018 12:19 PM EDT AGE/SEX: 73 years / Female INDICATIONS: Episode of blurred vision, dizziness. CLINICAL DATA: This is the patient's initial encounter. Patient reports that signs and symptoms have been present for 1 day and indicates a pain score of 0/10. MEDICAL/SURGICAL HISTORY: None. None. RADIATION DOSE: 56.35 CTDI (mGy) COMPARISON: [facility] [place], CT BRAIN W/O CONTRAST, 12/31/2016. . TECHNIQUE: CT of the head without contrast. Using automated exposure control and adjustment of the mA and/or kV according to patient size, radiation dose was kept as low as reasonably achievable to ob tain optimal diagnostic quality images. DICOM format image data is available electronically for revi ew and comparison. FINDINGS: Cerebrum: Mild diffuse cerebral atrophy. The ventricles are normal for degree of atrophy. No evidenc e of midline shift, mass lesion, hemorrhage or acute infarction. No extraaxial fluid collections are seen. Posterior Fossa: The cerebellum and brainstem are intact. The 4th ventricle is midline. The cerebe llopontine angle is unremarkable. Extracranial: The visualized portion of the orbits is intact. Skull: The calvaria is intact. No evidence of skull fracture. CONCLUSION: 1. No acute intracranial abnormality. . Electronically signed by: Evan Rodriguez MD 07/19/2018 1:23 PM EDT
[2018-07-19 13:33] LABS: CKMB Percent 0.7 % (0.0-4.0); Creatine Kinase MB 1.4 ng/mL (0.5-3.6)
[2018-07-19] MEDS ORDERED: Acetaminophen 325 MG Tablet PO PRN (13:49)
[2018-07-19 14:22] LABS: Bilirubin,Urine Negative (Negative); Clarity,Urine Clear (Clear); Color,Urine Straw (Yellw/Straw); Glucose,Urine (UA) Negative (Negative); Leukocyte Esterase,Urine Negative (Negative); Nitrite,Urine Negative (Negative); Specific Gravity,Urine 1.005 (1.002-1.035); Squamous Epithelial Cell,Urine 1 /hpf (0-5)
--- NOTE | 2018-07-19 14:52 | P.HPIM ---
History of Present Illness Primary Care Physician: Maureen Jason MD Chief Complaint: Blurry vision History of Present Illness: The patient is a 73-year-old female with a past medical history of lupus and hypertension who is presenting to the hospital following an episode of blurry vision. The patient states that earlier today she went to the [facility] where she worked out and then eventually went to the mall because they were having a sale. While walking in the mall the patient developed blurry vision. She said she could not focus or read. She asked somebody in the mall if she could sit down. She went to her primary care doctor who referred her to the hospital for further workup. The patient says that she saw her eye doctor a few months ago and everything was normal at that time. The patient said that besides the blurry vision the only other symptom she had was unsteadiness. The whole ordeal lasted about 10 minutes. She is fully recovered at this time. She states that she had a similar presentation one year ago and had a full workup at that time. She has not had similar symptoms in between these 2 events. The patient does endorse severe headaches about every 1 or 2 months. She says she experiences worsening of the headache with bright lights. She does have a medication she takes for severe headaches. Review of Systems All other systems reviewed negative except as stated in HPI [facility] - History History Provided By: Patient - Medical History Medical History: Medical History (Last Updated 07/19/18 @ 14:50 by Johnny Carpio DO) Gallstones (Acute) Hypertension Lupus - Surgical History Surgical History: Surgical History (Last Updated 07/19/18 @ 14:50 by Johnny Carpio DO) No history of previous surgery S/P cholecystectomy - Family History Family History: Family History (Last Updated 07/19/18 @ 14:50 by Johnny Carpio DO) Other Hypertension - Social History I have reviewed the patient's Social History: Yes - Tobacco History Tobacco Use In Past 30 Days: No Smoking Status: Never smoker - Alcohol History How Often Do You Have a Drink Containing Alcohol: Never - Travel History Recent Travel in the [place] Within the Last 8 Weeks: No Recent Travel Out of the Country Within the Last 8 Weeks: No - Immunization History Tetanus Immunization: Unsure Medications and Allergies Active Medications: Active Medications Acetaminophen (Tylenol) 650 mg PO Q4H PRN PRN Reason: Temp > 100.4 Aspirin (Aspirin) 325 mg PO DAILY COUNT INCLUDES THE [facility] Enoxaparin Sodium (Lovenox Inj) 30 mg SQ Q24H COUNT INCLUDES THE [facility] Hydroxychloroquine Sulfate (Plaquenil) 200 mg PO BID COUNT INCLUDES THE [facility] Sodium Chloride (Ns Inj) 1,000 mls @ 70 mls/hr IV.CONT .[id number] COUNT INCLUDES THE [facility] Stop: 07/20/18 02:32 Last Admin: 07/19/18 12:57 Dose: 70 mls/hr Sodium Chloride (Ns Inj) 1,000 mls @ 100 mls/hr IV.CONT .Q10H COUNT INCLUDES THE [facility] Stop: 07/19/18 23:59 Last Admin: 07/19/18 14:16 Dose: 100 mls/hr Senna/Docusate Sodium (Isabela-Colace) 1 tab PO BID COUNT INCLUDES THE [facility] Sodium Chloride (Ns Flush) 2 ml IV.FLUSH PRN PRN PRN Reason: FLUSH AFTER USING IV ACCESS Allergies Allergy/AdvReac Type Severity Reaction Status Date / Time lisinopril Allergy Severe Anaphylaxis Verified 07/19/18 12:50 codeine Allergy Unknown RASH Verified 07/19/18 12:50 Home Medications Medication Instructions Recorded Confirmed Type atenolol 50 mg PO BID 07/19/18 07/19/18 History hydroxychloroquine 200 mg PO BID 07/19/18 07/19/18 History nifedipine 60 mg PO DAILY 07/19/18 07/19/18 History Exam Vital signs: Vital Signs 07/19/18 12:01 07/19/18 12:36 07/19/18 12:48 Temperature 98.2 F Pulse Rate 71 81 Respiratory Rate 16 Blood Pressure 165/76 H Pulse Oximetry 99 98 07/19/18 14:20 Temperature Pulse Rate 61 Respiratory Rate 18 Blood Pressure 176/88 H Pulse Oximetry 99 Intake & Output 07/18/18 07/19/18 07/19/18 18:59 06:59 18:59 Weight 72.575 kg Narrative: General: NAD HEENT: NC, AT Lungs: CTAB Heart: RRR, no murmurs GI: Soft, nontender Extremities: No edema Neuro: PERRLA, motor equal in upper and lower extremities, sensation intact, normal [id number] test, normal speech Psych: Mood and affect appropriate Results - Labs CBC & Chem 7: 07/19/18 12:28 09/26/18 12:28 Labs: Short CBC 07/19/18 Range/Units 12:28 WBC 5.0 (4.0-11.0) th/mm3 Hgb 12.6 (11.6-15.3) gm/dL Hct 38.9 (35.0-46.0) % Plt Count 195 (150-450) th/mm3 BMP 07/19/18 12:28 Sodium 141 Potassium 4.1 Chloride 105 Carbon Dioxide 29.2 BUN 14 Creatinine 0.82 Calcium 8.6 Cardiac Enzymes 07/19/18 Range/Units 12:28 Total Creatine Kinase 205 H (26-192) U/L CK-MB (CK-2) 1.4 (0.5-3.6) ng/mL Troponin I Less than 0.02 L (0.02-0.05) ng/mL Urine 07/19/18 Range/Units 14:02 Urine Color Straw (Yellw/Straw) Urine Clarity Clear (Clear) Urine pH 7.0 (5.0-8.5) Ur Specific [place] 1.005 (1.002-1.035) Urine Protein Negative (Neg-Trace) mg/dL Urine Glucose (UA) Negative (Negative) mg/dL - Imaging Impressions Head CT 07/19/18 12:15 CONCLUSION: 1. No acute intracranial abnormality. . Caprini VTE Risk Assessment Caprini VTE Risk Assessment: Moderate/High Risk (score >= 2) Caprini Risk Assessment Model: Point Value = 1 Point Value = 2 Point Value = 3 Point Value = 5 Age 41-60 Minor surgery BMI > 25 kg/m2 Swollen legs Varicose veins or History of unexplained or recurrent spontaneous Oral contraceptives or hormone replacement Sepsis (< 1 month) Serious lung disease, including pneumonia (< 1 month) Abnormal pulmonary function Acute myocardial infarction Congestive heart failure (< 1 month) History of inflammatory bowel disease Medical patient at bed rest Age 61-74 Arthroscopic surgery Major open surgery (> 45 min) Laparoscopic surgery (> 45 min) Malignancy Confined to bed (> 72 hours) Immobilizing plaster cast Central venous access Age >= 75 History of VTE Family history of VTE Factor V Leiden Prothrombin [id number] Lupus anticoagulant Anticardiolipin antibodies Elevated serum homocysteine Heparin-induced thrombocytopenia Other congenital or acquired thrombophilia Stroke (< 1 month) Elective arthroplasty Hip, pelvis, or leg fracture Acute spinal cord injury (< 1 month) Prophylaxis Regimen: Total Risk Factor Score Risk Level Prophylaxis Regimen 0-1 Low Early ambulation 2 Moderate Order ONE of the following: *Sequential Compression Device (SCD) *Heparin 5000 units SQ BID 3-4 Higher Order ONE of the following medications: *Heparin 5000 units SQ TID *Enoxaparin/Lovenox 40 mg SQ daily (WT < 150 kg, CrCl > 30 mL/min) *Enoxaparin/Lovenox 30 mg SQ daily (WT < 150 kg, CrCl > 10-29 mL/min) *Enoxaparin/Lovenox 30 mg SQ BID (WT < 150 kg, CrCl > 30 mL/min) AND/OR *Sequential Compression Device (SCD) 5 or more Highest Order ONE of the following medications: *Heparin 5000 units SQ TID (Preferred with Epidurals) *Enoxaparin/Lovenox 40 mg SQ daily (WT < 150 kg, CrCl > 30 mL/min) *Enoxaparin/Lovenox 30 mg SQ daily (WT < 150 kg, CrCl > 10-29 mL/min) *Enoxaparin/Lovenox 30 mg SQ BID (WT < 150 kg, CrCl > 30 mL/min) AND *Sequential Compression Device (SCD) Assessment and Plan - Plan Blurry vision Had a similar episode last year. MRI brain and carotid US at that time were unremarkable. CT head unremarkable at this time. Symptoms resolved in 10 minutes. Concern for TIA vs complicated migraine as she does have a history of severe headaches. -neurology consult as this is the second incident. -defer MRI, MRA to neurology. -check an echo. -permissive HTN. -PT. -continue ASA 325 mg daily. -check lipid profile, TSH, B12 level. -trend trops. -telemetry. Lupus Chronic. -continue home hydroxychloroquine. HTN Blood pressure elevated. -holding home meds at this time. -clonidine needed for SBP > 210. PPx: Lovenox
--- NOTE | 2018-07-19 18:34 | P.CONNEU ---
History of Present Illness Service: Neurology Primary Care Provider: Maureen Jason MD Family Provider: Maureen Jason MD Chief Complaint: Blurry vision History of Present Illness: 73-year-old female admitted for blurry vision. Transient occurred while she was at a department store. Lasted a few minutes. States everything looked blurry both eyes no double vision not affecting half her field. No headache temporal pain no focal weakness no vertigo. Had a similar episode about a year ago workup was negative at that time. Does take aspirin daily. Noted be slightly hypertensive on arrival. Review of Systems All other systems reviewed negative except as stated [facility] - History History Provided By: Patient - Medical History Medical History: Medical History (Last Updated 07/19/18 @ 14:50 by Johnny Carpio DO) Gallstones (Acute) Hypertension Lupus - Surgical History Surgical History: Surgical History (Last Updated 07/19/18 @ 14:50 by Johnny Carpio DO) No history of previous surgery S/P cholecystectomy - Family History Family History: Family History (Last Updated 07/19/18 @ 14:50 by Johnny Carpio DO) Other Hypertension - Tobacco History Second Hand Smoke Exposure: No Tobacco Use In Past 30 Days: No Smoking Status: Never smoker - Alcohol History How Often Do You Have a Drink Containing Alcohol: Never - Substance Use History Substance History: No History of Abuse - Travel History Recent Travel in the [place] Within the Last 8 Weeks: No Recent Travel Out of the Country Within the Last 8 Weeks: No - Immunization History Tetanus Immunization: Unsure Medications and Allergies Active Medications: Active Medications Acetaminophen (Tylenol) 650 mg PO Q4H PRN PRN Reason: Temp > 100.4 Aspirin (Aspirin) 325 mg PO DAILY SANDIE Clonidine HCl (Catapres) 0.1 mg PO Q6H PRN PRN Reason: sbp > 210 Enoxaparin Sodium (Lovenox Inj) 30 mg SQ Q24H [facility] Hydroxychloroquine Sulfate (Plaquenil) 200 mg PO BID [facility]IE Sodium Chloride (Ns Inj) 1,000 mls @ 70 mls/hr IV.CONT .[id number] [facility] Stop: 07/20/18 02:32 Last Admin: 07/19/18 12:57 Dose: 70 mls/hr Sodium Chloride (Ns Inj) 1,000 mls @ 100 mls/hr IV.CONT .Q10H [facility] Stop: 07/19/18 23:59 Last Admin: 07/19/18 14:16 Dose: 100 mls/hr Senna/Docusate Sodium (Isabela-Colace) 1 tab PO BID SANDIE Sodium Chloride (Ns Flush) 2 ml IV.FLUSH PRN PRN PRN Reason: FLUSH AFTER USING IV ACCESS Allergies Allergy/AdvReac Type Severity Reaction Status Date / Time lisinopril Allergy Severe Anaphylaxis Verified 07/19/18 12:50 codeine Allergy Unknown RASH Verified 07/19/18 12:50 Home Medications Medication Instructions Recorded Confirmed Type atenolol 50 mg PO BID 07/19/18 07/19/18 History hydroxychloroquine 200 mg PO BID 07/19/18 07/19/18 History nifedipine 60 mg PO DAILY 07/19/18 07/19/18 History Exam Vital signs: Vital Signs 07/19/18 12:01 07/19/18 12:36 07/19/18 12:48 Temperature 98.2 F Pulse Rate 71 81 Respiratory Rate 16 Blood Pressure 165/76 H Pulse Oximetry 99 98 07/19/18 14:20 Temperature Pulse Rate 61 Respiratory Rate 18 Blood Pressure 176/88 H Pulse Oximetry 99 Intake & Output 07/18/18 07/19/18 07/19/18 18:59 06:59 18:59 Weight 72.575 kg Narrative: GENERAL: in NAD, SKIN: Warm and dry. HEAD: Atraumatic. Normocephalic. EYES: Pupils equal and round. No scleral icterus. ENT: No nasal bleeding or discharge. Mucous membranes pink and moist. NECK: Trachea midline. No JVD. CARDIOVASCULAR: Regular rate and rhythm. RESPIRATORY: No accessory muscle use. GASTROINTESTINAL: Abdomen soft, non-tender, nondistended. MUSCULOSKELETAL: Extremities without clubbing, cyanosis, or edema. No obvious deformities. NEUROLOGICAL: Awake and alert. No aphasia, fluent articulate, No facial asymmetry, OU 3-2mm, eomi, VFF, No drift, Motor grossly within normal limits. Five out of 5 muscle strength in the arms and legs. Tone normal in all 4 limbs, Sensory normal in all 4 extremities to pin, msr 1-2+ sym, no clonus, planterflexor, PSYCHIATRIC: Appropriate mood and affect; insight and judgment normal. - Constitutional no acute distress - Routine HEENT Exam Head: Present: normocephalic Eye: Present: EOMI Results - Labs CBC & Chem 7: 07/19/18 12:28 07/19/18 12:28 Labs: Laboratory Results - last 24 hr 07/19/18 07/19/18 07/19/18 12:28 12:28 12:28 WBC 5.0 RBC 4.59 Hgb 12.6 Hct 38.9 MCV 84.6 MCH 27.5 MCHC 32.5 RDW 14.9 Plt Count 195 MPV 9.9 Neut % (Auto) 51.4 Lymph % (Auto) 36.9 [place] % (Auto) 7.5 Eos % (Auto) 3.5 Baso % (Auto) 0.7 Neut # (Auto) 2.6 Lymph # (Auto) 1.8 [place] # (Auto) 0.4 Eos # (Auto) 0.2 Baso # (Auto) 0.0 WBC Differential . Differential Comment Auto diff final PT 10.1 INR 1.0 APTT 22.8 L Sodium 141 Potassium 4.1 Chloride 105 Carbon Dioxide 29.2 Anion Gap 7 BUN 14 Creatinine 0.82 Estimated GFR 83 L Random Glucose 94 Calcium 8.6 Total Creatine Kinase 205 H CK-MB (CK-2) 1.4 CK-MB (CK-2) % 0.7 Troponin I Less than 0.02 L Urine Color Urine Clarity Urine pH Ur Specific [place] Urine Protein Urine Glucose (UA) Urine Ketones Urine Occult Blood Urine Nitrate Urine Bilirubin Urine Urobilinogen Ur Leukocyte Esterase Urine RBC Urine WBC Ur Squamous Epith Cells Micro UA Comment Ur Microscopic Review Urine Culture Comments 07/19/18 14:02 WBC RBC Hgb Hct MCV MCH MCHC RDW Plt Count MPV Neut % (Auto) Lymph % (Auto) [place] % (Auto) Eos % (Auto) Baso % (Auto) Neut # (Auto) Lymph # (Auto) [place] # (Auto) Eos # (Auto) Baso # (Auto) WBC Differential Differential Comment PT INR APTT Sodium Potassium Chloride Carbon Dioxide Anion Gap BUN Creatinine Estimated GFR Random Glucose Calcium Total Creatine Kinase CK-MB (CK-2) CK-MB (CK-2) % Troponin I Urine Color Straw Urine Clarity Clear Urine pH 7.0 Ur Specific [place] 1.005 Urine Protein Negative Urine Glucose (UA) Negative Urine Ketones Negative Urine Occult Blood Negative Urine Nitrate Negative Urine Bilirubin Negative Urine Urobilinogen Less than 2 Ur Leukocyte Esterase Negative Urine RBC 1 Urine WBC Less than 1 Ur Squamous Epith Cells 1 Micro UA Comment Culture not ind Ur Microscopic Review Not Reportable Urine Culture Comments Culture not ind - Imaging Impressions Head CT 07/19/18 12:15 CONCLUSION: 1. No acute intracranial abnormality. . Review/Management - Diagnosis (1) Transient cerebral ischemia Code(s): G45.9 - Transient cerebral ischemic attack, unspecified Status: Acute Current Visit: Yes (2) Hypertension Code(s): I10 - Essential (primary) hypertension Status: Acute Current Visit : Yes (3) Blurry vision, bilateral Code(s): H53.8 - Other visual disturbances Status: Acute Current Visit: Yes - Review/Management Plan: Recurrent episodes of transient binocular blurry vision Etiology would include vertebrobasilar insufficiency versus blood pressure surge Previous MRI brain carotid ultrasound negative. However intracranial vessel imaging not performed Recommendations MRI, MRA brain Carotid imaging Echo Lipid, TSH, B12, HbA1c Therapy Telemetry SCDs Aggrenox in place of aspirin Blood pressure control (1) Transient cerebral ischemia Qualifiers: Transient cerebral ischemia type: unspecified Qualified Code(s): G45.9 - Transient cerebral ischemic attack, unspecified
[2018-07-19] MEDS: Enoxaparin Inj 30 MG/0.3 ML Syringe SQ SCH (19:10)
[2018-07-19] MEDS ORDERED: LORazepam 1 MG Tablet PO PRN (19:46)
--- NOTE | 2018-07-19 20:18 | ECG ---
Date Performed: 07/19/2018 Time Performed: 12:46:21 PTAGE: 73 years EKG: Sinus rhythm NORMAL ECG PREVIOUS TRACING : 01/01/2017 01.55 Since the previous tracing, no significant change noted DOCTOR: Fidel Cabrera Interpretating Date/Time 07/19/2018 20:17:18
[2018-07-19 22:03] LABS: C-Reactive Protein 0.6 mg/dL (0.00-0.30)
[2018-07-19 22:05] LABS: Cholesterol 173 mg/dL (120-200); Triglycerides 47 mg/dL (42-150)
[2018-07-19] MEDS: Senna/Docusate Sodium 8.6/50 MG Tablet PO SCH (22:05)
[2018-07-19] MEDS: Hydroxychloroquine 200 MG Tablet PO SCH (22:05)
[2018-07-19 22:28] LABS: Thyroid Stimulating Hormone 1.85 uIU/mL (0.358-3.740)
[2018-07-19 22:30] LABS: Chol/HDL Ratio 3.11 Ratio; Creatine Kinase 175 U/L (26-192); HDL Cholesterol 55.6 mg/dL (40.0-60.0); LDL Cholesterol,Calculated 108 mg/dL (0-99); Vitamin B12 1217 pg/mL (193-986)
[2018-07-20 04:04] LABS: Baso % (Auto) 0.8 % (0.0-2.0); Eos # (Auto) 0.1 th/mm3 (0.0-0.4); Eos % (Auto) 1.3 % (0.0-4.0); Hematocrit 39.6 % (35.0-46.0); Hemoglobin 12.7 gm/dL (11.6-15.3); Lymph # (Auto) 1.4 th/mm3 (1.0-4.8); Mean Corpuscular HGB Conc 32.2 % (32.0-36.0); Mean Corpuscular Hemoglobin 27.4 pg (27.0-34.0); Mean Corpuscular Volume 85.1 fL (80.0-100.0); Mean Platelet Volume 9.5 fL (7.0-11.0); Mono # (Auto) 0.3 th/mm3 (0.0-0.9); Mono % (Auto) 6.4 % (0.0-8.0); Neut # (Auto) 3.1 th/mm3 (1.8-7.7); Neut % (Auto) 62.5 % (16.0-70.0); Platelet Count 184 th/mm3 (150-450); Red Blood Count 4.65 mil/mm3 (4.00-5.30); Red Cell Distribution Width 14.9 % (11.6-17.2)
[2018-07-20 04:29] LABS: Albumin 3.5 g/dL (3.4-5.0); Anion Gap 6 meq/L (5-15); Aspartate Aminotransferase 21 U/L (15-37); Blood Urea Nitrogen 12 mg/dL (7-18); Calcium 8.7 mg/dL (8.5-10.1); Carbon Dioxide 28.9 meq/L (21.0-32.0); Chloride 104 meq/L (98-107); Glomerular Filtration Rate Greater Than 89 mL/min (>89); Glucose,Random 110 mg/dL (74-106); Potassium 3.9 meq/L (3.5-5.1); Sodium 139 meq/L (136-145)
[2018-07-20 04:32] LABS: Alanine Aminotransferase 26 U/L (10-53); Alkaline Phosphatase 113 U/L (45-117); Total Protein 7.9 g/dL (6.4-8.2)
[2018-07-20 04:33] LABS: Creatine Kinase 184 U/L (26-192)
[2018-07-20] MEDS ORDERED: Ibuprofen 600 MG Tablet PO ONE (04:52)
[2018-07-20] MEDS ORDERED: Aspirin 325 MG Tablet PO SCH (09:00)
[2018-07-20] MEDS ORDERED: Gadobutrol PF 10 MMOL/10 ML Vial (for RAD) IV.SIG ONE (09:08)
--- NOTE | 2018-07-20 09:10 | MR ---
EXAM DATE: 07/20/2018 7:20 AM EDT AGE/SEX: 73 years / Female INDICATIONS: CVA. Blurred vision. CLINICAL DATA: This is the patient's subsequent encounter. Patient reports that signs and symptoms h ave been present for 2 days and indicates a pain score of 0/10. MEDICAL/SURGICAL HISTORY: Hypertension. Cholecystectomy. Breast biopsy. COMPARISON: No prior exams available for comparison. TECHNIQUE: 3D [id number] MRA was performed. Source images, multiplanar STS MIP, and 3D volum e MIP reconstructions were reviewed. FINDINGS: There is excellent visualization of the major intracranial arteries out to the second-order branch ve ssels. There is no evidence for aneurysm, vessel truncation or stenosis, and no evidence for vascula r malformation. CONCLUSION: 1. Negative MRA [place] ([place]) non contrast. Electronically signed by: Vignesh Reese MD 07/20/2018 9:09 AM EDT
--- NOTE | 2018-07-20 09:24 | MR ---
EXAM DATE: 07/20/2018 7:20 AM EDT AGE/SEX: 73 years / Female INDICATIONS: CVA. Blurred vision. CLINICAL DATA: This is the patient's subsequent encounter. Patient reports that signs and symptoms h ave been present for 2 days and indicates a pain score of 0/10. MEDICAL/SURGICAL HISTORY: Hypertension. Cholecystectomy. Breast biopsy. COMPARISON: [facility], CT HEAD W/O CONTRAST, 07/19/2018. . TECHNIQUE: Multiplanar, multisequence examination of the brain was performed without contrast. FINDINGS: No intracranial mass or midline shift. No hydrocephalus. No evidence for recent infarction on the dif fusion-weighted images. No abnormal extra-axial fluid collections are present. No abnormal enhancing lesions are seen postcon trast. Visualized paranasal sinuses are clear. CONCLUSION: 1. No acute findings. Specifically, no recent infarct. Electronically signed by: Vignesh Reese MD 07/20/2018 9:23 AM EDT
--- NOTE | 2018-07-20 09:31 | MR ---
EXAM DATE: 07/20/2018 7:20 AM EDT AGE/SEX: 73 years / Female INDICATIONS: Stenosis. CLINICAL DATA: This is the patient's subsequent encounter. Patient reports that signs and symptoms h ave been present for 2 days and indicates a pain score of 0/10. MEDICAL/SURGICAL HISTORY: Hypertension. Cholecystectomy. Breast biopsy. COMPARISON: No prior exams available for comparison. TECHNIQUE: 10 ml Gadavist (gadobutrol) contrast infused MRA (single exam dose) of the extracranial circulation was performed using a neurovascular coil. Postprocessing was performed, including rotati ng sub-volume maximum intensity projections of each carotid artery, rotating full-volume maximum inte nsity projections of both carotid arteries, sagittal and coronal sliding thin-slab reformations of ea ch carotid artery, and left oblique sliding thin-slab reformation through the aortic arch to include the origin of the arch branch vessels. FINDINGS: The brachiocephalic artery and left common carotid artery are patent. There is a focal moderate to hi gh-grade stenosis in the proximal left subclavian artery. Patient would be at risk for developing sub clavian steal phenomenon. There is moderate plaque at the right carotid bifurcation with a stenosis of around 50% when compared with the luminal diameter of the contralateral carotid bifurcation. There is mild plaque at the left carotid bifurcation without hemodynamically significant stenosis. Jeyson th vertebral arteries are patent within the neck. CONCLUSION: 1. Focal moderate to high-grade stenosis proximal left subclavian artery. 2. Moderate plaque of the right carotid bifurcation with a focal 50% or less stenosis. Percent stenosis is calculated using the diameter of the stenotic region over the diameter of the nor mal distal internal carotid artery Electronically signed by: Vignesh Reese MD 07/20/2018 9:30 AM EDT
[2018-07-20] MEDS: Senna/Docusate Sodium 8.6/50 MG Tablet PO SCH ×2 (10:35→20:13)
[2018-07-20] MEDS: Hydroxychloroquine 200 MG Tablet PO SCH ×2 (10:35→20:10)
[2018-07-20] MEDS ORDERED: Butalbital/APAP/Caff 50/325/40 MG Tablet PO ONE (11:35)
--- NOTE | 2018-07-20 12:50 | P.PN ---
Subjective Interval history: Follow up on patient with blurry vision and unsteadiness. Patient is complaining of headache. She states she is a migraine suffer and her headache is similar to what she normally has at home. She denies any slurred speech, numbness/tingling, weakness, dizziness or lightheadedness. She denies any chest pain or shortness of breath. She denies any nausea, vomiting or abdominal pain. Physical Exam Vital signs: Vital Signs 07/19/18 12:48 07/19/18 14:20 07/19/18 20:00 Temperature 98.0 F Pulse Rate 81 61 65 Respiratory Rate 18 16 Blood Pressure 176/88 H 175/82 H Pulse Oximetry 99 98 07/20/18 00:00 07/20/18 04:00 07/20/18 07:46 Temperature 97.9 F 97.9 F Pulse Rate 78 70 75 Respiratory Rate 16 17 Blood Pressure 143/69 H 141/69 H Pulse Oximetry 98 98 07/20/18 10:33 07/20/18 12:23 Temperature 98.1 F 97.8 F Pulse Rate 78 80 Respiratory Rate 18 16 Blood Pressure 114/68 138/61 Pulse Oximetry 98 99 Intake & Output 07/19/18 07/20/18 07/20/18 18:59 06:59 18:59 Intake Total 1000 / 1000 1610 / 1610 Balance 1000 / 1000 1610 / 1610 Weight 72.575 kg 72.63 kg Intake: IV 1000 / 1000 210 / 210 NS Inj 1,000 ML @ 100 mls/hr IV 1000 / 1000 210 / 210 .CONT .Q10H [facility] Rx#:[id number] Oral 240 / 240 Other 1160 / 1160 Other: Other Intake Source Saline Solution # Voids 3 Narrative: GENERAL: WDWN AAF patient, INAD. Awake and alert. is at the bedside. No facial asymmetry. SKIN: Warm and dry. HEENT: Atraumatic. Normocephalic. Pupils equal and round. No scleral icterus. No injection or drainage. No nasal bleeding or discharge. Mucous membranes pink and moist. Tongue is midline. NECK: Trachea midline. CARDIOVASCULAR: Regular rate and rhythm. RESPIRATORY: No accessory muscle use. Clear to auscultation. Breath sounds equal bilaterally. GASTROINTESTINAL: Abdomen soft, non-tender, nondistended. +BS. MUSCULOSKELETAL: Extremities without clubbing, cyanosis, or edema. No obvious deformities. NEUROLOGICAL: Awake and alert. No obvious cranial nerve deficits. Motor grossly within normal limits. Able to move all extremities spontaneously. Normal speech. PSYCHIATRIC: Appropriate mood and affect; insight and judgment normal. Results - Labs CBC & Chem 7: 07/20/18 03:48 07/20/18 03:48 Laboratory Results - last 24 hr 07/19/18 07/19/18 07/19/18 12:28 12:28 12:28 WBC 5.0 RBC 4.59 Hgb 12.6 Hct 38.9 MCV 84.6 MCH 27.5 MCHC 32.5 RDW 14.9 Plt Count 195 MPV 9.9 Neut % (Auto) 51.4 Lymph % (Auto) 36.9 Nicholas % (Auto) 7.5 Eos % (Auto) 3.5 Baso % (Auto) 0.7 Neut # (Auto) 2.6 Lymph # (Auto) 1.8 Nicholas # (Auto) 0.4 Eos # (Auto) 0.2 Baso # (Auto) 0.0 WBC Differential . Differential Comment Auto diff final ESR PT 10.1 INR 1.0 APTT 22.8 L Sodium 141 Potassium 4.1 Chloride 105 Carbon Dioxide 29.2 Anion Gap 7 BUN 14 Creatinine 0.82 Estimated GFR 83 L POC Glucose Random Glucose 94 Calcium 8.6 Total Bilirubin AST ALT Alkaline Phosphatase Total Creatine Kinase 205 H CK-MB (CK-2) 1.4 CK-MB (CK-2) % 0.7 Troponin I Less than 0.02 L C-Reactive Protein Total Protein Albumin Triglycerides Cholesterol LDL Cholesterol, Calc HDL Cholesterol Cholesterol/HDL Ratio Vitamin B12 TSH Urine Color Urine Clarity Urine pH Ur Specific [place] Urine Protein Urine Glucose (UA) Urine Ketones Urine Occult Blood Urine Nitrate Urine Bilirubin Urine Urobilinogen Ur Leukocyte Esterase Urine RBC Urine WBC Ur Squamous Epith Cells Micro UA Comment Ur Microscopic Review Urine Culture Comments 07/19/18 07/19/18 07/19/18 14:02 20:00 21:16 WBC RBC Hgb Hct MCV MCH MCHC RDW Plt Count MPV Neut % (Auto) Lymph % (Auto) Nicholas % (Auto) Eos % (Auto) Baso % (Auto) Neut # (Auto) Lymph # (Auto) Nicholas # (Auto) Eos # (Auto) Baso # (Auto) WBC Differential Differential Comment ESR PT INR APTT Sodium Potassium Chloride Carbon Dioxide Anion Gap BUN Creatinine Estimated GFR POC Glucose 115 H Random Glucose Calcium Total Bilirubin AST ALT Alkaline Phosphatase Total Creatine Kinase 175 CK-MB (CK-2) CK-MB (CK-2) % Troponin I Less than 0.02 L C-Reactive Protein Total Protein Albumin Triglycerides 47 Cholesterol 173 LDL Cholesterol, Calc 108 H HDL Cholesterol 55.6 Cholesterol/HDL Ratio 3.11 Vitamin B12 1217 H TSH Urine Color Straw Urine Clarity Clear Urine pH 7.0 Ur Specific [place] 1.005 Urine Protein Negative Urine Glucose (UA) Negative Urine Ketones Negative Urine Occult Blood Negative Urine Nitrate Negative Urine Bilirubin Negative Urine Urobilinogen Less than 2 Ur Leukocyte Esterase Negative Urine RBC 1 Urine WBC Less than 1 Ur Squamous Epith Cells 1 Micro UA Comment Culture not ind Ur Microscopic Review Not Reportable Urine Culture Comments Culture not ind 07/19/18 07/19/18 07/19/18 21:16 21:16 21:16 WBC RBC Hgb Hct MCV MCH MCHC RDW Plt Count MPV Neut % (Auto) Lymph % (Auto) Nicholas % (Auto) Eos % (Auto) Baso % (Auto) Neut # (Auto) Lymph # (Auto) Nicholas # (Auto) Eos # (Auto) Baso # (Auto) WBC Differential Differential Comment ESR 28 PT INR APTT Sodium Potassium Chloride Carbon Dioxide Anion Gap BUN Creatinine Estimated GFR POC Glucose Random Glucose Calcium Total Bilirubin AST ALT Alkaline Phosphatase Total Creatine Kinase CK-MB (CK-2) CK-MB (CK-2) % Troponin I C-Reactive Protein 0.60 H Total Protein Albumin Triglycerides Cholesterol LDL Cholesterol, Calc HDL Cholesterol Cholesterol/HDL Ratio Vitamin B12 1245 H TSH 1.870 1.850 Urine Color Urine Clarity Urine pH Ur Specific [place] Urine Protein Urine Glucose (UA) Urine Ketones Urine Occult Blood Urine Nitrate Urine Bilirubin Urine Urobilinogen Ur Leukocyte Esterase Urine RBC Urine WBC Ur Squamous Epith Cells Micro UA Comment Ur Microscopic Review Urine Culture Comments 07/20/18 07/20/18 07/20/18 02:52 03:48 03:48 WBC 5.0 RBC 4.65 Hgb 12.7 Hct 39.6 MCV 85.1 MCH 27.4 MCHC 32.2 RDW 14.9 Plt Count 184 MPV 9.5 Neut % (Auto) 62.5 Lymph % (Auto) 29.0 Nicholas % (Auto) 6.4 Eos % (Auto) 1.3 Baso % (Auto) 0.8 Neut # (Auto) 3.1 Lymph # (Auto) 1.4 Nicholas # (Auto) 0.3 Eos # (Auto) 0.1 Baso # (Auto) 0.0 WBC Differential . Differential Comment Auto diff final ESR PT INR APTT Sodium Potassium Chloride Carbon Dioxide Anion Gap BUN Creatinine Estimated GFR POC Glucose 96 Random Glucose Calcium Total Bilirubin AST ALT Alkaline Phosphatase Total Creatine Kinase 184 CK-MB (CK-2) CK-MB (CK-2) % Troponin I Less than 0.02 L C-Reactive Protein Total Protein Albumin Triglycerides Cholesterol LDL Cholesterol, Calc HDL Cholesterol Cholesterol/HDL Ratio Vitamin B12 TSH Urine Color Urine Clarity Urine pH Ur Specific [place] Urine Protein Urine Glucose (UA) Urine Ketones Urine Occult Blood Urine Nitrate Urine Bilirubin Urine Urobilinogen Ur Leukocyte Esterase Urine RBC Urine WBC Ur Squamous Epith Cells Micro UA Comment Ur Microscopic Review Urine Culture Comments 07/20/18 07/20/18 03:48 06:40 WBC RBC Hgb Hct MCV MCH MCHC RDW Plt Count MPV Neut % (Auto) Lymph % (Auto) Nicholas % (Auto) Eos % (Auto) Baso % (Auto) Neut # (Auto) Lymph # (Auto) Nicholas # (Auto) Eos # (Auto) Baso # (Auto) WBC Differential Differential Comment ESR PT INR APTT Sodium 139 Potassium 3.9 Chloride 104 Carbon Dioxide 28.9 Anion Gap 6 BUN 12 Creatinine 0.70 Estimated GFR Greater than 89 POC Glucose 112 H Random Glucose 110 H Calcium 8.7 Total Bilirubin 0.5 AST 21 ALT 26 Alkaline Phosphatase 113 Total Creatine Kinase CK-MB (CK-2) CK-MB (CK-2) % Troponin I C-Reactive Protein Total Protein 7.9 Albumin 3.5 Triglycerides Cholesterol LDL Cholesterol, Calc HDL Cholesterol Cholesterol/HDL Ratio Vitamin B12 TSH Urine Color Urine Clarity Urine pH Ur Specific [place] Urine Protein Urine Glucose (UA) Urine Ketones Urine Occult Blood Urine Nitrate Urine Bilirubin Urine Urobilinogen Ur Leukocyte Esterase Urine RBC Urine WBC Ur Squamous Epith Cells Micro UA Comment Ur Microscopic Review Urine Culture Comments - Imaging Impressions Head CT 07/19/18 12:15 CONCLUSION: 1. No acute intracranial abnormality. . Head MRI 07/20/18 00:00 CONCLUSION: 1. No acute findings. Specifically, no recent infarct. Head MRA 07/20/18 00:00 CONCLUSION: 1. Negative MRA Cow ([place]) non contrast. Neck MRA 07/20/18 00:00 CONCLUSION: 1. Focal moderate to high-grade stenosis proximal left subclavian artery. 2. Moderate plaque of the right carotid bifurcation with a focal 50% or less stenosis. Percent stenosis is calculated using the diameter of the stenotic region over the diameter of the normal distal internal carotid artery Assessment and Plan - Plan 73-year-old female with a past medical history of lupus and hypertension who is presenting to the hospital following an episode of blurry vision. Blurry vision, possible presyncopal episode Had a similar episode last year. MRI brain and carotid US at that time were unremarkable. CT head unremarkable at this time. Symptoms resolved in 10 minutes. Concern for TIA vs complicated migraine as she does have a history of severe headaches. MRI head with no acute findings MRA head neg MRA neck +focal moderate to high grade stenosis in the proximal left subclavian artery and moderate plaque of right carotid bifurcation TSH 1.850 B12 level 1245 Troponin less than 0.02 x 3 orthostatics neg -Neurology following, appreciate assistance. Changed to Aggrenox in place of aspirin. -Consult Vascular surgery, appreciate assistance -Echo done/report pending -continue ASA 325 mg daily. -telemetry. Lupus Chronic. -continue home hydroxychloroquine. HTN Blood pressure elevated at admission, improved -holding home meds at this time to allow for permissive HTN -clonidine needed for SBP > 210. Headache, chronic -Fioricet prn PPx: Lovenox Discussed Condition With: patient, nursing staff, Dr. Martinez Discharge Planning: Not ready for discharge.
--- NOTE | 2018-07-20 13:15 | ECHRPT ---
Indication: CVA/TIA CONCLUSIONS Normal left ventricular size. The left ventricular systolic function is normal with an estimated eje ction fraction in the range of 55-60%. Mild concentric left ventricular hypertrophy. [id number] mitral valve regurgitation. There is trace tricuspid valve regurgitation. The estimated pulmonary arterial pressure is 26 mmHg. BP: / HR: Rhythm: MEASUREMENTS (Male / Female) Normal Values Technical Quality: 2D ECHO LV Diastolic Diameter PLAX 3.1 cm 4.2 - 5.9 / 3.9 - 5.3 cm LV Systolic Diameter PLAX 2.3 cm IVS Diastolic Thickness 1.3 cm 0.6 - 1.0 / 0.6 - 0.9 cm LVPW Diastolic Thickness 1.4 cm 0.6 - 1.0 / 0.6 - 0.9 cm LV Relative Wall Thickness 0.9 RV Internal Dim ED PLAX 3.0 cm LVOT Diameter 1.6 cm Aortic Root Diameter 2.9 cm LA Systolic Diameter LX 2.6 cm 3.0 - 4.0 / 2.7 - 3.8 cm LV Ejection Fraction MOD 4C 46.3 % LV Ejection Fraction 4C AL 46.8 % M-MODE Aortic Root Diameter MM 2.2 cm LA Systolic Diameter MM 3.1 cm LA Ao Ratio MM 1.4 AV Cusp Separation MM 1.7 cm DOPPLER AV Peak Velocity 138.0 cm/s AV Peak Gradient 7.6 mmHg LVOT Peak Velocity 103.0 cm/s LVOT Peak Gradient 4.2 mmHg AV Area Cont Eq pk 1.5 cm Mitral E Point Velocity 66.6 cm/s Mitral A Point Velocity 95.8 cm/s Mitral E to A Ratio 0.7 LV E' Lateral Velocity 8.4 cm/s Mitral E to LV E' Lateral Ratio 7.9 LV E' Septal Velocity 4.7 cm/s Mitral E to LV E' Septal Ratio 14.2 TR Peak Velocity 200.0 cm/s TR Peak Gradient 16.0 mmHg Right Atrial Pressure 10.0 mmHg Pulmonary Artery Systolic Pressu 26.0 mmHg Right Ventricular Systolic Press 26.0 mmHg PV Peak Velocity 91.2 cm/s PV Peak Gradient 3.3 mmHg FINDINGS LEFT VENTRICLE Normal left ventricular size. The left ventricular systolic function is normal with an estimated eje ction fraction in the range of 55-60%. Mild concentric left ventricular hypertrophy. RIGHT VENTRICLE Normal right ventricular size and systolic function. LEFT ATRIUM The left atrial size is normal. RIGHT ATRIUM The right atrial size is normal. ATRIAL SEPTUM Normal atrial septal thickness without atrial level shunting by limited color doppler interrogation. AORTA The aortic root and proximal ascending aorta are normal in size on limited imaging. MITRAL VALVE [id number] mitral valve regurgitation. AORTIC VALVE Trileaflet aortic valve. No aortic valve stenosis or regurgitation. TRICUSPID VALVE There is trace tricuspid valve regurgitation. The estimated pulmonary arterial pressure is 26 mmHg. PULMONARY VALVE No pulmonary valve regurgitation or stenosis. VESSELS The inferior vena cava is normal in size. PERICARDIUM No pericardial effusion. Fidel Cabrera MD, FACC (Electronically Signed) Final Date:20 July 2018 13:14
[2018-07-20 16:59] LABS: Hemoglobin A1c 5.9 % (4.3-6.0)
[2018-07-20] MEDS: Enoxaparin Inj 30 MG/0.3 ML Syringe SQ SCH (18:08)
[2018-07-20] MEDS: Butalbital/APAP/Caff 50/325/40 MG Tablet PO PRN (18:48)
--- NOTE | 2018-07-20 20:48 | P.PNVS ---
Subjective Subjective/Hospital Course: 07/20/2018 Patient with unusual symptoms resembling somewhat amaurosis fugax but not quite so. CTA of the carotids ordered We will follow-up Full consult dictated Thanks J Objective Vital Signs / I&O: Vital Signs 07/20/18 00:00 07/20/18 04:00 07/20/18 07:46 Temperature 97.9 F 97.9 F Pulse Rate 78 70 75 Respiratory Rate 16 17 Blood Pressure 143/69 H 141/69 H Pulse Oximetry 98 98 07/20/18 10:33 07/20/18 12:23 07/20/18 15:52 Temperature 98.1 F 97.8 F 98.1 F Pulse Rate 78 80 86 Respiratory Rate 18 16 20 Blood Pressure 114/68 138/61 118/57 L Pulse Oximetry 98 99 99 07/20/18 19:54 Temperature 98.1 F Pulse Rate 87 Respiratory Rate 17 Blood Pressure 126/63 Pulse Oximetry 98 Intake & Output 07/20/18 07/20/18 07/21/18 06:59 18:59 06:59 Intake Total 1000 / 1000 2410 / 2410 Balance 1000 / 1000 2410 / 2410 Weight 72.63 kg Intake: IV 1000 / 1000 210 / 210 NS Inj 1,000 ML @ 100 mls/hr IV 1000 / 1000 210 / 210 .CONT .Q10H [facility] Rx#:[id number] Oral 1040 / 1040 Other 1160 / 1160 Other: Other Intake Source Saline Solution # Voids 3 Laboratory Results - last 24 hr 07/19/18 07/19/18 07/19/18 21:16 21:16 21:16 WBC RBC Hgb Hct MCV MCH MCHC RDW Plt Count MPV Neut % (Auto) Lymph % (Auto) [place] % (Auto) Eos % (Auto) Baso % (Auto) Neut # (Auto) Lymph # (Auto) [place] # (Auto) Eos # (Auto) Baso # (Auto) WBC Differential Differential Comment ESR 28 Sodium Potassium Chloride Carbon Dioxide Anion Gap BUN Creatinine Estimated GFR POC Glucose Random Glucose Hemoglobin A1c Calcium Total Bilirubin AST ALT Alkaline Phosphatase Total Creatine Kinase 175 Troponin I Less than 0.02 L C-Reactive Protein Total Protein Albumin Triglycerides 47 Cholesterol 173 LDL Cholesterol, Calc 108 H HDL Cholesterol 55.6 Cholesterol/HDL Ratio 3.11 Vitamin B12 1217 H TSH 1.870 07/19/18 07/20/1818 21:16 02:52 03:48 WBC RBC Hgb Hct MCV MCH MCHC RDW Plt Count MPV Neut % (Auto) Lymph % (Auto) [place] % (Auto) Eos % (Auto) Baso % (Auto) Neut # (Auto) Lymph # (Auto) [place] # (Auto) Eos # (Auto) Baso # (Auto) WBC Differential Differential Comment ESR Sodium Potassium Chloride Carbon Dioxide Anion Gap BUN Creatinine Estimated GFR POC Glucose 96 Random Glucose Hemoglobin A1c Calcium Total Bilirubin AST ALT Alkaline Phosphatase Total Creatine Kinase 184 Troponin I Less than 0.02 L C-Reactive Protein 0.60 H Total Protein Albumin Triglycerides Cholesterol LDL Cholesterol, Calc HDL Cholesterol Cholesterol/HDL Ratio Vitamin B12 1245 H TSH 1.850 07/20/18 07/20/18 07/20/18 03:48 03:48 03:48 WBC 5.0 RBC 4.65 Hgb 12.7 Hct 39.6 MCV 85.1 MCH 27.4 MCHC 32.2 RDW 14.9 Plt Count 184 MPV 9.5 Neut % (Auto) 62.5 Lymph % (Auto) 29.0 [place] % (Auto) 6.4 Eos % (Auto) 1.3 Baso % (Auto) 0.8 Neut # (Auto) 3.1 Lymph # (Auto) 1.4 [place] # (Auto) 0.3 Eos # (Auto) 0.1 Baso # (Auto) 0.0 WBC Differential . Differential Comment Auto diff final ESR Sodium 139 Potassium 3.9 Chloride 104 Carbon Dioxide 28.9 Anion Gap 6 BUN 12 Creatinine 0.70 Estimated GFR Greater than 89 POC Glucose Random Glucose 110 H Hemoglobin A1c 5.9 Calcium 8.7 Total Bilirubin 0.5 AST 21 ALT 26 Alkaline Phosphatase 113 Total Creatine Kinase Troponin I C-Reactive Protein Total Protein 7.9 Albumin 3.5 Triglycerides Cholesterol LDL Cholesterol, Calc HDL Cholesterol Cholesterol/HDL Ratio Vitamin B12 TSH 07/20/18 07/20/18 06:40 19:36 WBC RBC Hgb Hct MCV MCH MCHC RDW Plt Count MPV Neut % (Auto) Lymph % (Auto) [place] % (Auto) Eos % (Auto) Baso % (Auto) Neut # (Auto) Lymph # (Auto) [place] # (Auto) Eos # (Auto) Baso # (Auto) WBC Differential Differential Comment ESR Sodium Potassium Chloride Carbon Dioxide Anion Gap BUN Creatinine Estimated GFR POC Glucose 112 H 152 H Random Glucose Hemoglobin A1c Calcium Total Bilirubin AST ALT Alkaline Phosphatase Total Creatine Kinase Troponin I C-Reactive Protein Total Protein Albumin Triglycerides Cholesterol LDL Cholesterol, Calc HDL Cholesterol Cholesterol/HDL Ratio Vitamin B12 TSH Impressions Head CT 07/19/18 12:15 CONCLUSION: 1. No acute intracranial abnormality. . Head MRI 07/20/18 00:00 CONCLUSION: 1. No acute findings. Specifically, no recent infarct. Head MRA 07/20/18 00:00 CONCLUSION: 1. Negative MRA Cow ([place]) non contrast. Neck MRA 07/20/18 00:00 CONCLUSION: 1. Focal moderate to high-grade stenosis proximal left subclavian artery. 2. Moderate plaque of the right carotid bifurcation with a focal 50% or less stenosis. Percent stenosis is calculated using the diameter of the stenotic region over the diameter of the normal distal internal carotid artery
--- NOTE | 2018-07-20 21:01 | MB ---
cc: Saqib Turpin MD DATE: 07/20/2018 REASON FOR CONSULTATION: Amyloidosis fugax x3, questionable carotid stenosis. 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 The patient states that she was in a department store. It lasted about 10 minutes, but this was to both eyes and not in a classic way of amaurosis fugax. No headache. The patient had now 3 of those episodes, one about several years ago and one about a year ago, nothing since she has been in the hospital. PAST MEDICAL HISTORY: Hypertension, lupus. SURGICAL HISTORY: Cholecystectomy. SOCIAL HISTORY: The patient does not smoke, does not drink. PHYSICAL EXAMINATION: GENERAL: She is pleasant 73-year-old lady. HEENT: Normocephalic. No trauma to the head. Pupils are equal and reactive. Extraocular muscles intact. NECK: Supple. Bilateral carotid pulses. No bruits. No masses in the neck. CHEST: Bilateral breath sounds. HEART: Regular rate and rhythm. ABDOMEN: Soft. Active bowel sounds. No rebound, no guarding, no masses. EXTREMITIES: Grossly within normal limits with good proximal and distal pulses. No vascular deficit and no acute vascular changes. BACK: Normal. NEUROLOGIC: The patient is fully intact methodically. Strength is bilateral +5. The deep tendon reflexes are normal. No pathologic reflexes. IMPRESSION AND RECOMMENDATIONS: I reviewed laboratory and diagnostic procedures. This lady had workup consisting of several MRI studies. On the MRI of the neck, there is no appreciable carotid stenosis. An MRI of the brain is normal. At this point it is very unlikely that the patient's symptoms are due to carotid disease and the nature of the symptoms are also unusual because they are not lateralizing with a loss of visual field or anything, just simply blurred vision. I still think it is probably appropriate to do a CTA of the neck to make sure, but other than that, I do not believe that the patient will have carotid stenosis that needs to be addressed. In addition, the patient has subclavian artery stenosis and some of these patients will have a steal syndrome from it, but it does not appear to be tight enough to cause this. A CT of the neck will elucidate this as well a little better. I thank you very much for the referral. MD AUSTYN Hester/ct , 08:33 PM , 08:40 PM
[2018-07-21 07:33] VITALS: O2SAT 98
--- NOTE | 2018-07-21 08:14 | P.PNNEU ---
Subjective Subjective Comments: No cp, no dyspnea, no harden, no focal weakness, no vision loss Active Medications: Active Medications Acetaminophen (Tylenol) 650 mg PO Q4H PRN PRN Reason: Temp > 100.4 Last Admin: 07/20/18 03:11 Dose: 650 mg Acetaminophen/Butalbital/Caffeine (Fioricet 50-325-40) 1 tab PO Q6H PRN PRN Reason: HEADACHE Last Admin: 07/20/18 18:48 Dose: 1 tab Clonidine HCl (Catapres) 0.1 mg PO Q6H PRN PRN Reason: sbp > 210 Dipyridamole/Aspirin (Aggrenox) 1 cap PO Q12HR [facility] Last Admin: 07/20/18 20:10 Dose: 1 cap Enoxaparin Sodium (Lovenox Inj) 30 mg SQ Q24H [facility] Last Admin: 07/20/18 18:08 Dose: 30 mg Hydroxychloroquine Sulfate (Plaquenil) 200 mg PO BID [facility] Last Admin: 07/20/18 20:10 Dose: 200 mg Senna/Docusate Sodium (Isabela-Colace) 1 tab PO BID [facility] Last Admin: 07/20/18 20:13 Dose: Not Given Sodium Chloride (Ns Flush) 2 ml IV.FLUSH PRN PRN PRN Reason: FLUSH AFTER USING IV ACCESS Allergies/Adverse Reactions: Allergies Allergy/AdvReac Type Severity Reaction Status Date / Time lisinopril Allergy Severe Anaphylaxis Verified 07/19/18 12:50 codeine Allergy Unknown RASH Verified 07/19/18 12:50 Review of Systems All other systems reviewed negative except as stated in HPI Physical Exam Vital signs: Vital Signs 07/20/18 10:33 07/20/18 12:23 07/20/18 15:52 Temperature 98.1 F 97.8 F 98.1 F Pulse Rate 78 80 86 Respiratory Rate 18 16 20 Blood Pressure 114/68 138/61 118/57 L Pulse Oximetry 98 99 99 07/20/18 19:54 07/21/18 00:00 07/21/18 03:03 Temperature 98.1 F 98.0 F 97.9 F Pulse Rate 87 70 69 Respiratory Rate 17 19 18 Blood Pressure 126/63 138/71 132/67 Pulse Oximetry 98 99 97 07/21/18 05:51 07/21/18 07:30 07/21/18 07:55 Temperature 97.8 F Pulse Rate 62 60 61 Respiratory Rate 12 Blood Pressure 159/75 H Pulse Oximetry 98 Intake & Output 07/20/18 07/21/18 07/21/18 18:59 06:59 18:59 Intake Total 2410 / 2410 180 / 180 Balance 2410 / 2410 180 / 180 Intake: IV 210 / 210 NS Inj 1,000 ML @ 100 mls/hr IV 210 / 210 .CONT .Q10H [facility] Rx#:[id number] Oral 1040 / 1040 180 / 180 Other 1160 / 1160 Other: Other Intake Source Saline Solution # Voids 3 1 Narrative: GENERAL: in NAD, SKIN: Warm and dry. HEAD: Atraumatic. Normocephalic. EYES: Pupils equal and round. No scleral icterus. ENT: No nasal bleeding or discharge. Mucous membranes pink and moist. NECK: Trachea midline. No JVD. CARDIOVASCULAR: Regular rate and rhythm. RESPIRATORY: No accessory muscle use. GASTROINTESTINAL: Abdomen soft, non-tender, nondistended. MUSCULOSKELETAL: Extremities without clubbing, cyanosis, or edema. No obvious deformities. NEUROLOGICAL: Awake and alert. No aphasia, fluent articulate, No facial asymmetry, OU 3-2mm, eomi, VFF, No drift, Motor grossly within normal limits. Five out of 5 muscle strength in the arms and legs. Tone normal in all 4 limbs, Sensory normal in all 4 extremities to pin, msr 1-2+ sym, no clonus, planterflexor, PSYCHIATRIC: Appropriate mood and affect; insight and judgment normal. - Constitutional no acute distress - Routine HEENT Exam Head: Present: normocephalic Eye: Present: EOMI Objective Laboratory Results - last 24 hr 07/20/18 07/20/18 07/21/18 03:48 19:36 02:08 POC Glucose 152 H 111 H Hemoglobin A1c 5.9 07/21/18 06:09 POC Glucose 98 Hemoglobin A1c Review/Management - Diagnosis (1) Transient cerebral ischemia Code(s): G45.9 - Transient cerebral ischemic attack, unspecified Status: Acute Current Visit: Yes (2) Hypertension Code(s): I10 - Essential (primary) hypertension Status: Acute Current Visit : Yes (3) Blurry vision, bilateral Code(s): H53.8 - Other visual disturbances Status: Acute Current Visit: Yes - Review/Management Plan: Recurrent episodes of transient binocular blurry vision Etiology would include vertebrobasilar insufficiency versus blood pressure surge Previous MRI brain carotid ultrasound negative. However intracranial vessel imaging not performed Left subclavian stenosis Recommendations CTA aortic arch subclavian artery by vascular surgery Antiplatelets Blood pressure control Discharge planning once cleared by vascular surgery Behavioral modification and risk factor reduction. Weight loss, blood pressure control, blood sugar control, lipid control. Exercise f/u with pcp (1) Transient cerebral ischemia Qualifiers: Transient cerebral ischemia type: unspecified Qualified Code(s): G45.9 - Transient cerebral ischemic attack, unspecified
[2018-07-21] MEDS: Senna/Docusate Sodium 8.6/50 MG Tablet PO SCH (08:50)
[2018-07-21] MEDS: Hydroxychloroquine 200 MG Tablet PO SCH (08:50)
[2018-07-21 11:22] VITALS: RESP 16; TEMP 97.9
--- NOTE | 2018-07-21 12:09 | P.PNVS ---
Subjective Subjective/Hospital Course: 07/20/2018 Patient with unusual symptoms resembling somewhat amaurosis fugax but not quite so. CTA of the carotids ordered We will follow-up Full consult dictated Thanks J 07/21/2018 Patient awake alert and has not had any neurologic symptoms since the admission CTA of the carotids pending but based on her symptoms I do not believe it will show significant degree of carotid stenosis as the cause of this Continue to follow Objective Vital Signs / I&O: Vital Signs 07/20/18 12:23 07/20/18 15:52 07/20/18 19:54 Temperature 97.8 F 98.1 F 98.1 F Pulse Rate 80 86 87 Respiratory Rate 16 20 17 Blood Pressure 138/61 118/57 L 126/63 Pulse Oximetry 99 99 98 07/21/18 00:00 07/21/18 03:03 07/21/18 05:51 Temperature 98.0 F 97.9 F Pulse Rate 70 69 62 Respiratory Rate 19 18 Blood Pressure 138/71 132/67 Pulse Oximetry 99 97 07/21/18 07:30 07/21/18 07:55 07/21/18 09:00 Temperature 97.8 F Pulse Rate 60 61 72 Respiratory Rate 12 Blood Pressure 159/75 H Pulse Oximetry 98 07/21/18 11:20 Temperature 97.9 F Pulse Rate 68 Respiratory Rate 16 Blood Pressure 168/76 H Pulse Oximetry 98 Intake & Output 07/20/18 07/21/18 07/21/18 18:59 06:59 18:59 Intake Total 2410 / 2410 180 / 180 Balance 2410 / 2410 180 / 180 Intake: IV 210 / 210 NS Inj 1,000 ML @ 100 mls/hr IV 210 / 210 .CONT .Q10H [facility] Rx#:[id number] Oral 1040 / 1040 180 / 180 Other 1160 / 1160 Other: Other Intake Source Saline Solution # Voids 3 1 Date of Last Bowel Movement 07/19/18 Laboratory Results - last 24 hr 07/20/18 07/20/18 07/21/18 03:48 19:36 02:08 POC Glucose 152 H 111 H Hemoglobin A1c 5.9 07/21/18 06:09 POC Glucose 98 Hemoglobin A1c Impressions Head CT 07/19/18 12:15 CONCLUSION: 1. No acute intracranial abnormality. . Head MRI 07/20/18 00:00 CONCLUSION: 1. No acute findings. Specifically, no recent infarct. Head MRA 07/20/18 00:00 CONCLUSION: 1. Negative MRA Cow ([place]) non contrast. Neck MRA 07/20/18 00:00 CONCLUSION: 1. Focal moderate to high-grade stenosis proximal left subclavian artery. 2. Moderate plaque of the right carotid bifurcation with a focal 50% or less stenosis. Percent stenosis is calculated using the diameter of the stenotic region over the diameter of the normal distal internal carotid artery
[2018-07-21] MEDS: Butalbital/APAP/Caff 50/325/40 MG Tablet PO PRN (12:21)
--- NOTE | 2018-07-21 13:50 | P.PN ---
Subjective Interval history: Follow up on patient with blurry vision and unsteadiness. Patient seen and examined. Patient denies any blurry/double/abnormal vision this morning. She denies any complaints of headaches. She states she feels well and is hoping she can be discharged today. She denies any dizziness, lightheadedness, slurred speech, weakness, numbness or tingling. She denies any chest pain or shortness of breath. Physical Exam Vital signs: Vital Signs 07/20/18 15:52 07/20/18 19:54 07/21/18 00:00 Temperature 98.1 F 98.1 F 98.0 F Pulse Rate 86 87 70 Respiratory Rate 20 17 19 Blood Pressure 118/57 L 126/63 138/71 Pulse Oximetry 99 98 99 07/21/18 03:03 07/21/18 05:51 07/21/18 07:30 Temperature 97.9 F 97.8 F Pulse Rate 69 62 60 Respiratory Rate 18 12 Blood Pressure 132/67 159/75 H Pulse Oximetry 97 98 07/21/18 07:55 07/21/18 09:00 07/21/18 11:20 Temperature 97.9 F Pulse Rate 61 72 68 Respiratory Rate 16 Blood Pressure 168/76 H Pulse Oximetry 98 Intake & Output 07/20/18 07/21/18 07/21/18 18:59 06:59 18:59 Intake Total 2410 / 2410 180 / 180 Balance 2410 / 2410 180 / 180 Intake: IV 210 / 210 NS Inj 1,000 ML @ 100 mls/hr IV 210 / 210 .CONT .Q10H [facility] Rx#:[id number] Oral 1040 / 1040 180 / 180 Other 1160 / 1160 Other: Other Intake Source Saline Solution # Voids 3 1 Date of Last Bowel Movement 07/19/18 Narrative: GENERAL: WDWN A[facility] patient, INAD. Awake and alert. is at the bedside. SKIN: Warm and dry. HEENT: Atraumatic. Normocephalic. Pupils equal and round. No scleral icterus. No injection or drainage. No nasal bleeding or discharge. Mucous membranes pink and moist. Tongue is midline. NECK: Trachea midline. CARDIOVASCULAR: Regular rate and rhythm. RESPIRATORY: No accessory muscle use. Clear to auscultation. Breath sounds equal bilaterally. GASTROINTESTINAL: Abdomen soft, non-tender, nondistended. +BS. MUSCULOSKELETAL: Extremities without clubbing, cyanosis, or edema. No obvious deformities. NEUROLOGICAL: Awake and alert. No obvious cranial nerve deficits. Motor grossly within normal limits. Able to move all extremities spontaneously. Normal speech. PSYCHIATRIC: Appropriate mood and affect; insight and judgment normal. Results - Labs CBC & Chem 7: 07/20/18 03:48 07/20/18 03:48 Laboratory Results - last 24 hr 07/20/18 07/20/18 07/21/18 03:48 19:36 02:08 POC Glucose 152 H 111 H Hemoglobin A1c 5.9 07/21/18 06:09 POC Glucose 98 Hemoglobin A1c Assessment and Plan - Plan 73-year-old female with a past medical history of lupus and hypertension who is presenting to the hospital following an episode of blurry vision. Blurry vision, possible presyncopal episode Had a similar episode last year. MRI brain and carotid US at that time were unremarkable. CT head unremarkable at this time. Symptoms resolved in 10 minutes. Concern for TIA vs complicated migraine as she does have a history of severe headaches. MRI head with no acute findings MRA head neg MRA neck +focal moderate to high grade stenosis in the proximal left subclavian artery and moderate plaque of right carotid bifurcation Echo EF 55-60% TSH 1.850 B12 level 1245 Troponin less than 0.02 x 3 orthostatics neg -Neurology following, appreciate assistance. Changed to Aggrenox in place of aspirin. Cleared from Neuro standpoint. -Vascular surgery following, appreciate assistance. CTA of the neck ordered. -Aggrenox daily -telemetry. Lupus Chronic. -continue home hydroxychloroquine. HTN Blood pressure elevated at admission, improved -resume home HTN meds -clonidine needed for SBP > 210. Headache, chronic -Fioricet prn PPx: Lovenox Discharge patient to home Condition on discharge: stable heart healthy Diet as tolerated Ad Rehana activity Rx written: Follow-up with primary care physician and vascular surgery Discussed Condition With: patient, nursing staff, Dr. Martinez
--- NOTE | 2018-07-21 13:51 | P.DCO ---
- Physical Therapy Order: Evaluate and treat, Improve ambulation, Strength and gait training - Home Health Nursing Order: Medical education, Signs/symptoms of disease process, Medication education-adverse effect, Nursing assessment with vital signs - Case Management Consult Yes - Certification I have seen patient Lexie Barry on 07/21/18. My clinical findings support the need for the requested home health care services because: Limited mobility due to disease progression, Deconditioned with increased weakness, High risk of falls I certify that my clinical findings support that this patient is homebound because: Unsteady gait/balance, Unsafe to leave home unassisted, Unable to use public transportation
[2018-07-21] MEDS: Enoxaparin Inj 30 MG/0.3 ML Syringe SQ SCH (14:40)
--- NOTE | 2018-07-21 15:48 | CT ---
EXAM DATE: 07/21/2018 2:48 PM EDT AGE/SEX: 73 years / Female INDICATIONS: Temporary vision loss. CLINICAL DATA: This is the patient's initial encounter. Patient reports that signs and symptoms have been present for 1 day and indicates a pain score of 0/10. MEDICAL/SURGICAL HISTORY: Hypertension. Cholecystectomy. RADIATION DOSE: 27.03 CTDI (mGy) COMPARISON: [facility], MRA NECK W CONTRAST, 07/20/2018. . TECHNIQUE: Volumetric scanning was performed using a multirow detector CT scanner during bolus infus ion of 70 ml Omnipaque 350 (iohexol) nonionic water-soluble contrast as a single exam dose. The da ta was postprocessed with a variety of visualization algorithms including full-volume maximum intensi ty projection, multiplanar sliding thin-slab reformation, curved-planar reformation, and surface-rend ering techniques. Using automated exposure control and adjustment of the mA and/or kV according to p atient size, radiation dose was kept as low as reasonably achievable to obtain optimal diagnostic mary lity images. DICOM format image data is available electronically for review and comparison. Percent stenosis is calculated using the diameter of the stenotic region over the diameter of the nor mal distal internal carotid artery. FINDINGS: Aortic Arch: There is a three-vessel origin of the great vessels from the aorta. Bulky calcified kole que at the origin of the left subclavian artery with likely mild resultant stenosis. The left subclav raghu artery is obscured by contrast in the subclavian vein and the suspected subclavian stenosis is no t adequately evaluated. Right Carotid: The common carotid artery is intact. Bulky calcified plaque extending from the caroti d bulb to the origin of the internal and external carotid arteries. There is resultant approximately 50% stenosis of the internal carotid origin. Internal carotid arteries otherwise patent to the skull base. The external carotid artery is intact. Left Carotid: The common carotid artery is intact. The carotid bulb has a normal configuration with out ulceration or narrowing. Mild eccentric calcified plaque in the region of the internal carotid ar olga with resultant less than 10% stenosis. Eccentric plaque extending from the very distal bulb to t he origin of the external carotid artery without significant flow-limiting stenosis. Vertebrals: The vertebral arteries have a symmetric diameter. No stenotic lesions are seen. General Findings: Lung apices are clear. Thyroid is unremarkable by CT. No significant adenopathy. CONCLUSION: 1. CTA examination is concordant with MRA examination demonstrating approximately 50% stenosis of th e right internal carotid origin secondary to bulky calcified plaque extending from the carotid bulb. 2. Less than 10% stenosis of the right internal carotid origin secondary to eccentric calcified plaq ue. 3. Patent bilateral vertebral arteries. 4. The focal stenosis noted in the proximal left subclavian artery on MRA examination is not adequat cordell visualized due to beam hardening artifact from contrast in the left subclavian vein. Electronically signed by: Evan Rodriguez MD 07/21/2018 3:47 PM EDT
[2018-07-21 15:51] VITALS: BP 174/82; PULSE 72
== END 2018-07-21 19:28 | disposition home health service (06) ==
LOC: NEDA 11:52 → NEPE 11:52 → NEPHCDU 15:10
PROVIDERS: ADMIT Family Medicine; ATTEND Family Medicine